=== PATIENT | male | born 1960 | race Caucasian/White ===

== ENCOUNTER 2017-06-01 09:07 | Day surgery (SDC) | payer BC, MEDICARE ==
[~2017-06-01 09:07] MED LIST: Buffered Lidocaine 0.9% SYRIN* 5 ML/SYR SYRINGE INTRADERM ONE
[2017-06-01] MEDS ORDERED: ceFAZolin 2 GM PREMIX (*) 2 GM/50 ML BAG IVPB ONE (09:35)
[2017-06-01] MEDS ORDERED: fentaNYL* 50 MCG/ML 2 ML VIAL (100 MCG VIAL) ONE ×2 (10:22→12:33)
[2017-06-01] MEDS ORDERED: Midazolam* 1 MG/ML 2 ML VIAL (2 MG) ONE (10:22)
[2017-06-01] MEDS ORDERED: Famotidine IV* 10 MG/ML 2 ML (20 mg) ONE (10:55)
[2017-06-01] MEDS ORDERED: Bupivacaine 0.25% SDV* 30 ML ONE (10:58)
[2017-06-01] MEDS ORDERED: Ketorolac INJ* 30 MG/ML 1 ML VIAL ONE (11:35)
[2017-06-01] MEDS ORDERED: Propofol* 10 MG/ML 20 ML BTL IV PUSH ONE (11:35)
[2017-06-01] MEDS ORDERED: Dexamethasone IV* 4 MG/ML 1 ML (4 MG) ONE (11:35)
[2017-06-01] MEDS ORDERED: Lidocaine 2% PF * 5 ML VIAL ONE (11:35)
[2017-06-01] MEDS ORDERED: DiMENhydriNATE IV* 50 MG/ML VIAL IV PUSH PRN (12:02)
[2017-06-01] MEDS ORDERED: Ondansetron INJ* 2 MG/ML VIAL IV PRN (12:02)
[2017-06-01] MEDS ORDERED: fentaNYL* 50 MCG/ML 2 ML VIAL (100 MCG VIAL) IV PRN (12:02)
[2017-06-01] MEDS ORDERED: oxyCODONE TAB* 5 MG TAB PO PRN (12:02)
[2017-06-01 13:43] VITALS: BP 122/68
--- NOTE | 2017-06-02 06:33 | OP ---
DATE OF OPERATION: 06/01/17 - [facility] DATE OF : 64 SURGEON: Dexter Lawler MD BOWSTRING MAKER: HALEY López. An city carrier assistant was needed for the entirety of the procedure to aid in positioning of the arm and retraction. ANESTHESIOLOGIST: Dr. Singh. ANESTHESIA: General. PRE-OP DIAGNOSES: 1. 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 2. 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 POST-OP DIAGNOSES: 1. 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 2. 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 OPERATIVE PROCEDURE: 1. Excision of very large right posterior elbow gouty tophus. 2. Curettage of right proximal elbow bone lesion. 3. Excision of right index finger radial sided metacarpophalangeal joint gouty tophus. INDICATIONS: Flaco is 56. 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 The worst is over the posterior elbow where it is very large and is probably almost 15 cm in diameter and protrudes a solid 4 to 5 cm from the back of the elbow. He had wanted that excised. 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 He is currently on probenecid. The tophi have not been shrinking or getting smaller. They have also not been getting larger. They have been very stable in size for quite sometime. I had talked to him about the risks and benefits including the risk of recurrence, the risk of deformity, the risk of swelling and stiffness after surgery. Wanted to proceed. ESTIMATED BLOOD LOSS: 5 mL. COMPLICATIONS: None. FINDINGS: A gouty tophus on the posterior elbow was eroding down into the proximal olecranon necessitating curettage of this lesion. DESCRIPTION OF PROCEDURE: Flaco was seen in the preoperative holding area. The correct site, side, and procedure were identified. He came back to the operating room. Anesthesia was induced. He was positioned supine with the use of hand table. The arm was prepped and draped in the usual fashion. A time- out was performed. I exsanguinated the arm with the Esmarch and the tourniquet was inflated to 250 mmHg. I then brought the arm across the body. The posterior elbow was positioned towards me. I made a longitudinal incision down the midline over the tophus. The dermis was and I went through the reactive zone and was able to reach the radial and ulnar aspect of the tophus and then I excised it from off the triceps fascia proximally and then more distally and released it off the periosteum over the proximal olecranon. I then passed this off as a specimen. There was a tract tunneling down to the proximal olecranon of crystals. I curettaged that and then used a rongeur to unroof it. Ultimately, the lesion ended up being a little over a cm long and about 6 mm wide and about 6 to 10 mm deep. I curettaged it out completely until there were no more crystals left. I went ahead and irrigated out this wound copiously. I placed both bone wax around the lesion there. I then excised about 5 mm of skin on either side of the incision to give it some of the redundancy, and the skin was closed with 4-0 nylon suture. I then turned my attention to the hand where I made a lazy S-incision over the dorsoradial aspect of the index finger metacarpophalangeal joint. Dissection was carried down longitudinally and the traversing veins and the sensory nerves were raised with the flaps. I went ahead and freed up the tophus dorsally and volarly and took this right off the extensor tendon. It was eroding into and degrading the radial sagittal band. I the plain as best possible. It was definitely an intralesional excision, and ultimately the tophus was extending and eroding into the first dorsal interosseous muscle and tendon. I debulked much of that as possible. The tophus was also deep to the sagittal band, and I used the rongeur and debulked that to the extent possible taking care to preserve the radial sagittal band and the radial collateral ligament to the extent possible. Once I had removed almost all the tophus and debulked it to the extent possible, I went ahead and irrigated out the wound. I flexed and extended the MCP joint to make sure the extensor tendons were not subluxating. There were staying nicely positioned over the dorsum of the joint. I therefore did not need to tighten up the radial sagittal band. I went ahead and irrigated out the wound. Again the skin was closed with 4-0 nylon suture. I infiltrated all the operative wounds with 0.25% plain Marcaine. I then dressed the wounds with Xeroform, 4x4, sterile Webril, and ABD at the elbow and a posterior slab splint that was brought down around the volar aspect of the wrist and down to the PIP joints holding the MP joints in extension. The tourniquet was then deflated and the hand pinked up immediately. He was then woken up and taken to the recovery room in stable condition. [id number]/[facility] #: [id number] [facility]USLuciana
== END 2017-06-01 13:45 | disposition home or self-care (01) ==
LOC: OREAST 09:07
PROVIDERS: ATTEND Orthopaedic Surgery Hand Surgery
DX: M1A.0211 Idiopathic chronic gout, right elbow, with tophus (tophi) (principal); M1A.0411 Idiopathic chronic gout, right hand, with tophus (tophi); Z79.899 Other long term (current) drug therapy; E03.9 Hypothyroidism, unspecified; K70.30 Alcoholic cirrhosis of liver without ascites; D64.9 Anemia, unspecified; E87.1 Hypo-osmolality and hyponatremia; F32.9 Major depressive disorder, single episode, unspecified
CPT/HCPCS: 88304; J0690; J1100; J1885; J2250; J2704; J3010

== ENCOUNTER → 2017-08-29 15:13 | Emergency (ER) | payer BC, MEDICARE ==
[~2017-08-29 15:13] MED LIST changes: -Buffered Lidocaine 0.9% SYRIN* 5 ML/SYR SYRINGE INTRADERM ONE; +D5W IVPB SCH; +Etomidate* 2 MG/ML 20 ML VIAL (40 MG) ONE; +KETAMINE HCL* 50 MG/ML 10 ML VIAL ONE; +Midazolam DRIP 100 MG (1 mg/ml)* - ED ONCE IV ONE; +NS 0.9% 1000 ML* 1,000 ML IV ONE; +OCTREOTIDE ACETATE IVPB SCH; +Octreotide Acetate* 100 MCG/ML 1 ML VIAL IV ONE; +Octreotide Acetate* 50 MCG/ML ML IV SLOW PU ONE; +Octreotide Acetate* 500 MCG in NS 0.9% 100 ML* 100 ML IVPB SCH; +Ondansetron INJ* 2 MG/ML VIAL IV ONE; +Ondansetron INJ* 2 MG/ML VIAL ONE; +Pantoprazole IV* 40 MG IV ONE; +Pantoprazole IV* 80 MG in NS 0.9% 100 ML* 100 ML IVPB SCH; +Rocuronium* 10 MG/ML VIAL IV ONE; +Rocuronium* 10 MG/ML VIAL ONE; +Succinylcholine* 20 MG/ML 10 ML VIAL ONE
--- OUTSIDE RECORDS SUMMARY | 2017-08-29 15:46 | XMS REPORT ---
:1960 External Reference #:[id number] Author Organization [employer] Address [address] [address] Phone [phone] Care Team Providers Name Role Phone Toni Barr MD Primary Care Physician Unavailable Payers Type Date Identification Numbers Payment Provider Subscriber Commercial Effective: Policy Number: BS Facets Izzy Reginaa 2016 [id number] Emilia PayID: [id number] [address] [address] [place] [address] Medigap Part B Effective: 2016 Policy Number: Medicare Edil Butler [id number] PayID: [id number] [address] [place] [address] Commercial Effective: 2015 Policy Number: 50% [facility] [facility] Edil Butler Expires: 2017 PayID: [id number] [place] [id number] Advance Directives Type Date Description Status Comment Other Directive 02/07/2016 Health Care Proxy Current and Verified Problems Date Description Provider Status Onset: 08/05/2012 Alverto Mishra M.D. Active Onset: 08/05/2012 Immunological Findings Nonspec Tommie Mishra M.D. Active Other & Unspec Onset: 08/05/2012 Farhana Mishra M.D. Active Onset: 01/31/2016 Alcoholic cirrhosis Ananda Molina M.D. Active Onset: 01/31/2016 Gastroesophageal reflux disease Ananda Molina M.D. Active Onset: 01/31/2016 Major depressive disorder, single Ananda Molina M.D. Active episode, unspecified Onset: 02/08/2016 Hypothyroidism Ananda Molina M.D. Active Onset: 03/07/2016 Anemia Ananda Molina M.D. Active Onset: 04/22/2016 Sequela of chronic liver disease Ananda Molina M.D. Active Onset: 01/21/2017 Internal hemorrhoids Julissa Beauchamp M.D.,FACGino Onset: 05/18/2017 Primary erectile dysfunction Julissa Beauchamp M.D.,FACGino Onset: 07/22/2013 Liver function tests abnormal Tommie Mishra M.D. Inactive Inactive: 06/12/2016 Onset: 02/01/2016 Elevated levels of transaminase & Tommie Mishra M.D. Inactive lactic acid dehydrogenase Inactive: 06/12/2016 Onset: 01/31/2016 Hypo-osmolality and or hyponatremia Ananda Molina M.D. Inactive Inactive: 05/18/2017 Onset: 04/26/2013 Medications Fdc (Current) Use Tommie Mishra M.D. Inactive Encounter Inactive: 05/18/2017 Family History Date Family Member(s) Problem(s) Comments General Diabetes Type II Father Diabetes Type II Mother Diabetes, Insulin Dependent First Sister Breast Cancer Social History Type Date Description Comments Marital Status Lives With Work Status Not Currently Working ETOH Use 06/12/2016 Denies alcohol use quit January 17 2016 ETOH Use Has consumed alcohol in the past Smoking 05/18/2017 Patient has never smoked Recreational Drug Use Denies Drug Use General Hx Text 3 kids, 2 stepkids Allergies, Adverse Reactions, Alerts Date Description Reaction Status Severity Comments 08/05/2012 NKDA active Medications Medication Date Status Form Strength Qnty SIG Indications Ordering Provider Sertraline HCL 07/24 Active Tablets 25mg 90tab take one F32.9 s tablet by Silvio Barr, mouth every M.D.,FACP morning Tramadol HCL 06/01 Active Tablets 50mg 30tab 1-2 tablet s by mouth Lawler, every 6 MD hours as needed pain Eplerenone 04/17 Active Tablets 25mg 45tab 1 by mouth s every Silvio Barr, morning M.D.,FACP Viagra 04/17 Active Tablets 50mg 10tab 1 by mouth s as needed Silvio Barr M.D.,FANTA Omeprazole 01/[address] 20mg 180ta 1 by mouth bs twice a day Silvio Barr M.D.,FACP Fluticasone 11/20 Active Suspension 50mcg/Act 16uni 1 spray each Propionate ts nostril in Silvio Barr, in the M.D.,FACP morning as needed Triamcinolone 11/20 Active Cream 0.5% 30gm every day as Acetonide needed Silvio Barr M.D.,FACP Lunesta 06/12 Active Tablets 2mg 30tab take 1 G47.00 s tablet by Silvio Barr mouth at M.D.,FACP bedtime as needed -- maximum daily dose of 1 per day Probenecid 05/08 Active Tablets 500mg 180ta Take one bs capsule/tabl Nely et by mouth M.D. twice daily Magnesium-Oxide 05/06 Active Tablets 400(241.3 90tab 1 by mouth mg) mg s every day Ordering Provider Synthroid 02/07 Active Tablets 25mcg 30tab take one E03.9 s tablet by Silvio Barr, mouth one M.D.,FACP time daily empty stomach Folic Acid 01/24 Active Tablets 1mg 30tab 1 by mouth D64.9 s every day Silvio Barr M.D.,FACP Lactulose 01/24 Active Solution 10GM/15ML 1419m 30 K70.40 l milliliters Silvio Barr, in the in M.D.,FACP the morning and 15ml in the evening Multivitamin 01/24 Active Tablets 30tab 1 by mouth s every day Silvio Barr M.D.,FACP Thiamine HCL 01/24 Active Tablets 100mg 30tab 1 by mouth s every day Silvio Barr M.D.,FACP Klor-Con M20 01/24 Active Tablets ER 20Meq 30tab 1 by mouth Toni s every day Silvio Barr M.D.,[facility] Xifaxan Active Tablets 550mg 60tab 1 po bid K70.40 Unknown /0000 s Tramadol 06/01 Hx Tablets 37.5-325m 30tab 1-2 tab by Dexter Ayala/ g s mouth every Lawler, cetaminophen - 4-6 hours as 06/01 needed Eplerenone 11/20 Hx Tablets 50mg 30tab 1 po qam Toni s Mor Al M.D.,[facility] 04/17 Polyethylene 08/06 Hx Powder 1450 1gm 17 grams mix Other with 8 oz of Ordering - water and Provider 09/17 drink daily Spironolactone 08/06 Hx Tablets 50mg 30tab 1 by mouth s every day Mor Al M.D.,[facility] 11/20 Ferrous 05/16 Hx Tablets 324(38Fe) 30tab take 1 D64.9 Other Gluconate /2015 mg s tablet by Ordering - mouth daily Provider 08/14 with vitamin /2015 c Ferrous 05/06 Hx Tablets 324(38Fe) 60tab take 1 D64.9 Bijan Gluconate /2015 mg s tablet by Belarusian, - mouth twice [employer] 05/08 a day with vitamin c Zolpidem 03/10 Hx Tablets 10mg 30tab 1/2 to 1 tab [place] Tartrate s by mouth Pachikara - every night , M.D. 04/22 at bedtime as needed Sertraline HCL 03/07 Hx Tablets 50mg 30tab 1/2 by mouth F32.9 Toni s every day Silvio Barr, - for 2 wks M.D.,[facility] 07/24 then Zolpidem 03/07 Hx Tablets 5mg 30tab 1 tab by G47.00 Toni Tartrate s mouth every Silvio Barr, - day at at M.D.,[facility] 06/12 bedtime needed Lasix 02/25 Hx Tablets 20mg 30tab 1 by mouth s every day Ordering - Provider 04/22 Spironolactone 02/07 Hx Tablets 25mg 60tab 1 tab by K70.31 s mouth twice Pachikara - daily , M.D. 08/14 Sertraline HCL 01/30 Hx Tablets 25mg 30tab 2/day F32.9 s Jesse - , M.DMaria De Jesus 03/07 Melatonin ER 01/24 Hx Tablets ER 3mg 30tab 1 tab by Other s mouth every Ordering - night prn Provider 05/06 insomnia (not taking) Prilosec 01/[address] 20mg 60cap 1 by mouth Toni s twice a day Mor Al M.D.,[facility] 01/21 Colcrys 03/08 Hx Tablets 0.6mg 60tab Take 1 s Tablet By Endo, - Mouth Two M.D. 01/30 Times Daily /2015 Colchicine 01/04 Hx Tablets 0.6mg 60tab 1 by mouth s twice a day Endo, - M.D. 04/05 Allopurinol 01/03 Hx Tablets 300mg 30tab Take One 274.82 s Tablet By Endo, - Mouth Once M.D. 01/30 /2015 Prednisone 04/26 Hx Tablets 10mg 60tab 1 by mouth 274.82 s twice a day Endo, - x 1 week as M.D. 01/30 Allopurinol 02/03 Hx Tablets 100mg 30tab 1 every day s Endo, - M.D. 01/30 Allopurinol 02/01 Hx Tablets 300mg 30tab 1 po qd 274.9 Tommie s Endo, - M.D. 04/05 Diclofenac 10/[address] 75mg 60tab 1 tab by 274.[address] s mouth once a Endo, - day prn M.D. 10/25 Colchicine 10/29 Hx Tablets 0.6mg 60tab 1 po bid 274.82 Tommie s Endo, - M.D. 07/22 Allopurinol 08/05 Hx Tablets 100mg 90tab 1 po bid x 4 274.9 s weeks then 3 Endo, - /d M.D. 02/01 Allopurinol /00 Hx Tablets 100mg 90tab 1 po qd Unknown / s - 08/05 Colcrys 00 Hx Tablets 0.6mg 30tab take 2 tabs Unknown /0000 s first now, - and then 1 10/25 tab one hour /2013 after the 2, and then one tab daily until symptoms resolve Prednisone 00 Hx Tablets 20mg 10tab 1 po qd Unknown / s - 04/26 Lasix Hx Tablets 20mg once daily Unknown /0000 - 04/22 Immunizations CPT Code Status Date Vaccine Reaction Lot # [id number] Given 04/17/2017 Influenza Virus Vaccine, 572kt Quadrivalent, Split, Preservative Free [id number] Given 01/21/2017 Measles Mumps And Rubella pt tolerated well, no [id number] MMR reaction [id number] Given 06/12/2016 Influenza Virus Vaccine, Quadrivalent, Split Virus, [place] Use [address]57 Given 06/12/2016 Pneumococcal Conjugate no reaction [id number] Vaccine 13 Valent For Intramuscular Use Vital Signs Date Vital Result Comment 08/18/2017 Height 70.5 inches 5'10.50" Weight 180.00 lb Heart Rate 97 /min BP Systolic 122 mmHg BP Diastolic 69 mmHg Body Temperature 97.9 F BMI (Body Mass Index) 25.5 kg/m2 07/24/2017 Weight 176.25 lb Heart Rate 84 /min BP Systolic Sitting 130 mmHg BP Diastolic Sitting 72 mmHg Body Temperature 97.8 F O2 % BldC Oximetry 97 % 07/15/2017 Height 70 inches 5'10" Weight 175.00 lb Heart Rate 76 /min Respiratory Rate 14 /min Body Temperature 97.3 F Pain Level 0 BMI (Body Mass Index) 25.1 kg/m2 06/17/2017 Height 70 inches 5'10" Weight 181.62 lb Heart Rate 81 /min BP Systolic Sitting 130 mmHg BP Diastolic Sitting 71 mmHg Respiratory Rate 14 /min Pain Level 2 BMI (Body Mass Index) 26.1 kg/m2 06/16/2017 Height 70 inches 5'10" Weight 175.00 lb Heart Rate 96 /min Respiratory Rate 16 /min Body Temperature 97.5 F Pain Level 1 BMI (Body Mass Index) 25.1 kg/m2 05/18/2017 Weight 176.00 lb Heart Rate 79 /min BP Systolic Sitting 130 mmHg BP Diastolic Sitting 58 mmHg Body Temperature 98.0 F O2 % BldC Oximetry 98 % 05/01/2017 Height 70 inches 5'10" Weight 175.00 lb Heart Rate 90 /min BP Systolic Sitting 121 mmHg BP Diastolic Sitting 71 mmHg Respiratory Rate 14 /min Body Temperature 97.1 F Pain Level 0 BMI (Body Mass Index) 25.1 kg/m2 04/17/2017 Weight 178.00 lb Heart Rate 89 /min BP Systolic Sitting 118 mmHg BP Diastolic Sitting 60 mmHg Body Temperature 97.7 F O2 % BldC Oximetry 98 % 01/21/2017 Weight 173.25 lb Heart Rate 78 /min BP Systolic Sitting 118 mmHg BP Diastolic Sitting 58 mmHg Body Temperature 97.7 F O2 % BldC Oximetry 98 % 11/20/2016 Height 68.5 inches 5'8.50" Weight 163.12 lb Heart Rate 93 /min BP Systolic Sitting 140 mmHg BP Diastolic Sitting 68 mmHg Body Temperature 98.0 F O2 % BldC Oximetry 98 % BMI (Body Mass Index) 24.4 kg/m2 09/17/2016 Height 68.5 inches 5'8.50" Weight 157.00 lb Heart Rate 80 /min BP Systolic Sitting 102 mmHg BP Diastolic Sitting 58 mmHg Body Temperature 97.8 F Pain Level 3 BMI (Body Mass Index) 23.5 kg/m2 08/14/2016 Weight 155.25 lb Heart Rate 78 /min BP Systolic Sitting 104 mmHg BP Diastolic Sitting 60 mmHg Body Temperature 97.9 F O2 % BldC Oximetry 99 % 06/17/2016 Height 68.5 inches 5'8.50" Weight 146.00 lb Heart Rate 80 /min BP Systolic Sitting 110 mmHg BP Diastolic Sitting 64 mmHg Respiratory Rate 14 /min Body Temperature 96.7 F Pain Level 3 BMI (Body Mass Index) 21.9 kg/m2 06/12/2016 Weight 148.50 lb Heart Rate 92 /min BP Systolic Sitting 115 mmHg BP Diastolic Sitting 64 mmHg Body Temperature 97.7 F O2 % BldC Oximetry 98 % 05/08/2016 Weight 146.12 lb Heart Rate 83 /min BP Systolic Sitting 100 mmHg BP Diastolic Sitting 58 mmHg Body Temperature 97.7 F O2 % BldC Oximetry 98 % 05/06/2016 Height 68.5 inches 5'8.50" Weight 145.00 lb Heart Rate 86 /min BP Systolic Sitting 112 mmHg BP Diastolic Sitting 64 mmHg Body Temperature 97.5 F Pain Level 3 BMI (Body Mass Index) 21.7 kg/m2 04/22/2016 Weight 140.50 lb Heart Rate 82 /min BP Systolic Sitting 110 mmHg BP Diastolic Sitting 58 mmHg Body Temperature 97.4 F O2 % BldC Oximetry 98 % 03/07/2016 Weight 137.00 lb Heart Rate 84 /min BP Systolic Sitting 110 mmHg BP Diastolic Sitting 70 mmHg BP Systolic Recheck 100 mmHg BP Diastolic Recheck 58 mmHg Respiratory Rate 14 /min Body Temperature 98.6 F Pain Level 4 02/15/2016 Weight 156.00 lb Heart Rate 108 /min BP Systolic Sitting 108 mmHg BP Diastolic Sitting 71 mmHg Body Temperature 96.9 F 02/08/2016 Weight 166.00 lb Heart Rate 84 /min BP Systolic Sitting 128 mmHg BP Diastolic Sitting 72 mmHg Respiratory Rate 14 /min O2 % BldC Oximetry 88 % 96 with deep breathing 02/01/2016 Height 68.5 inches 5'8.50" Weight 169.12 lb Heart Rate 100 /min BP Systolic Sitting 104 mmHg BP Diastolic Sitting 60 mmHg Body Temperature 98.5 F Pain Level 6 BMI (Body Mass Index) 25.3 kg/m2 01/31/2016 Height 68.5 inches 5'8.50" Weight 170.00 lb Heart Rate 106 /min BP Systolic Sitting 106 mmHg BP Diastolic Sitting 64 mmHg Body Temperature 98.4 F O2 % BldC Oximetry 98 % BMI (Body Mass Index) 25.5 kg/m2 04/05/2014 Height 70 inches 5'10" Weight 158.50 lb Heart Rate 86 /min BP Systolic Sitting 110 mmHg BP Diastolic Sitting 84 mmHg Pain Level 7 BMI (Body Mass Index) 22.7 kg/m2 01/03/2014 Height 70 inches 5'10" Weight 158.00 lb Heart Rate 80 /min BP Systolic 130 mmHg BP Diastolic 96 mmHg BMI (Body Mass Index) 22.7 kg/m2 10/25/2013 Height 70 inches 5'10" Weight 158.00 lb Heart Rate 94 /min BP Systolic Sitting 122 mmHg BP Diastolic Sitting 90 mmHg BMI (Body Mass Index) 22.7 kg/m2 07/22/2013 Weight 152.00 lb Heart Rate 70 /min BP Systolic 118 mmHg BP Diastolic 76 mmHg 04/26/2013 Height 69 inches 5'9" Weight 159.00 lb Heart Rate 98 /min BP Systolic Sitting 126 mmHg BP Diastolic Sitting 86 mmHg BMI (Body Mass Index) 23.5 kg/m2 02/01/2013 Height 69 inches 5'9" Weight 158.00 lb Heart Rate 88 /min BP Systolic Sitting 134 mmHg BP Diastolic Sitting 80 mmHg BMI (Body Mass Index) 23.3 kg/m2 10/29/2012 Height 69 inches 5'9" Weight 158.00 lb Heart Rate 84 /min BP Systolic Sitting 127 mmHg BP Diastolic Sitting 81 mmHg BMI (Body Mass Index) 23.3 kg/m2 08/05/2012 Height 69 inches 5'9" Weight 158.00 lb Heart Rate 82 /min BP Systolic Sitting 126 mmHg BP Diastolic Sitting 72 mmHg BMI (Body Mass Index) 23.3 kg/m2 Results Test Date Test Result H/L Range Note Laboratory test 06/16/2017 Uric Acid 5.1 mg/dL 4.4-7.6 1, 2 finding Laboratory test 06/01/2017 Surgical Pathology SEE RESULT BELOW 3, 4 finding Laboratory test 05/01/2017 TSH (Thyroid Stim 2.44 mcIU/mL 0.34-5.60 finding Horm) Free T4 (Free Thyroxine) 0.45 ng/dL Low 0.61-1.12 FSH (Follicle Stim Hormone) 3.2 mIU/mL 1-20 LH (Lutenizing Hormone) 5.7 mcIU/mL 2-12 Testosterone Free & 05/01/2017 Free Testosterone ng/dl 12.7 ng/dL 4.06-15.6 5 Total Testosterone 904 ng/dL 240-950 6 CBC No Diff 03/30/2017 White Blood Count 6.4 10^3/uL 3.5-10.8 Red Blood Count 3.89 10^6/uL Low 4.0-5.4 Hemoglobin 11.3 g/dL Low 14.0-18.0 Hematocrit 34 % Low 42-52 Mean Corpuscular Volume 87 fL 80-94 Mean Corpuscular Hemoglobin 29 pg 27-31 Mean Corpuscular HGB Conc 34 g/dL 31-36 Red Cell Distribution Width 15 % 10.5-15 Platelet Count 70 10^3/uL Low 150-450 7 Mean Platelet Volume 10 um3 7.4-10.4 Comp Metabolic Panel 03/30/2017 Sodium 136 mmol/L 133-145 Potassium 4.2 mmol/L 3.5-5.0 Chloride 104 mmol/L 101-111 Co2 Carbon Dioxide 26 mmol/L 22-32 Anion Gap 6 mmol/L 2-11 Glucose 123 mg/dL High 70-100 Blood Urea Nitrogen 11 mg/dL 6-24 Creatinine 1.09 mg/dL 0.67-1.17 BUN/Creatinine Ratio 10.1 8-20 Calcium 8.7 mg/dL 8.6-10.3 Total Protein 7.2 g/dL 6.4-8.9 Albumin 3.4 g/dL 3.2-5.2 Globulin 3.8 g/dL 2-4 Albumin/Globulin Ratio 0.9 Low 1-3 Total Bilirubin 1.40 mg/dL High 0.2-1.0 Alkaline Phosphatase 65 U/L 34-104 Alt 22 U/L 7-52 Ast 35 U/L 13-39 Egfr Non- 70.5 >60 Egfr 90.7 >60 8 CBC Auto Diff 11/27/2016 White Blood Count 5.5 10^3/uL 3.5-10.8 Red Blood Count 3.34 10^6/uL Low 4.0-5.4 Hemoglobin 10.3 g/dL Low 14.0-18.0 Hematocrit 31 % Low 42-52 Mean Corpuscular Volume 92 fL 80-94 Mean Corpuscular Hemoglobin 31 pg 27-31 Mean Corpuscular HGB Conc 34 g/dL 31-36 Red Cell Distribution Width 14 % 10.5-15 Platelet Count 68 10^3/uL Low 150-450 9 Mean Platelet Volume 12 um3 High 7.4-10.4 Abs Neutrophils 3.5 10^3/uL 1.5-7.7 Abs Lymphocytes 1.1 10^3/uL 1.0-4.8 Abs Monocytes 0.6 10^3/uL 0-0.8 Abs Eosinophils 0.3 10^3/uL 0-0.6 Abs Basophils 0 10^3/uL 0-0.2 Abs Nucleated RBC 0 10^3/uL Granulocyte % 63.6 % 38-83 Lymphocyte % 19.2 % Low 25-47 Monocyte % 10.4 % High 1-9 Eosinophil % 5.9 % 0-6 Basophil % 0.9 % 0-2 Nucleated Red Blood Cells % 0 Basic Metabolic Panel 11/27/2016 Sodium 133 mmol/L 133-145 Potassium 3.8 mmol/L 3.5-5.0 Chloride 103 mmol/L 101-111 Co2 Carbon Dioxide 24 mmol/L 22-32 Anion Gap 6 mmol/L 2-11 Glucose 190 mg/dL High 70-100 Blood Urea Nitrogen 9 mg/dL 6-24 Creatinine 0.92 mg/dL 0.67-1.17 BUN/Creatinine Ratio 9.8 8-20 Calcium 8.6 mg/dL 8.6-10.3 Egfr Non- 85.7 >60 Egfr 110.3 >60 10 Laboratory test 09/17/2016 Uric Acid 6.4 mg/dL 4.4-7.6 finding Laboratory test 08/22/2016 Surgical Pathology SEE RESULT BELOW 11 finding Lipid Profile 08/18/2016 Triglycerides 222 mg/dL 12, 13 (Trig/Chol/HDL) Cholesterol 195 mg/dL 12, 14 HDL Cholesterol 36.6 mg/dL 12, 15 LDL Cholesterol 114 mg/dL 12, 16 Laboratory test finding 07/09/2016 Uric Acid 6.1 mg/dL 4.4-7.6 17, 18 CBC Auto Diff 07/09/2016 White Blood Count 5.5 10^3/uL 3.5-10.8 Red Blood Count 3.13 10^6/uL Low 4.0-5.4 Hemoglobin 9.7 g/dL Low 14.0-18.0 Hematocrit 29 % Low 42-52 Mean Corpuscular Volume 91 fL 80-94 Mean Corpuscular Hemoglobin 31 pg 27-31 Mean Corpuscular HGB Conc 34 g/dL 31-36 Red Cell Distribution Width 17 % High 10.5-15 Platelet Count 77 10^3/uL Low 150-450 Mean Platelet Volume 9 um3 7.4-10.4 Abs Neutrophils 3.2 10^3/uL 1.5-7.7 Abs Lymphocytes 1.2 10^3/uL 1.0-4.8 Abs Monocytes 0.7 10^3/uL 0-0.8 Abs Eosinophils 0.4 10^3/uL 0-0.6 Abs Basophils 0.1 10^3/uL 0-0.2 Abs Nucleated RBC 0 10^3/uL Granulocyte % 58.0 % 38-83 Lymphocyte % 21.4 % Low 25-47 Monocyte % 12.7 % High 1-9 Eosinophil % 6.8 % High 0-6 Basophil % 1.1 % 0-2 Nucleated Red Blood Cells % 0 Retic Count 07/09/2016 Retic Count 1.4 % 0.5-1.5 Corrected Retic Count 0.9 % 0.5-1.5 Maturation Factor Retic 2.0 Retic Index 0.50 Mean Retic Volume 122.3 Immature Retic Fraction 0.39 RBC Retic Count 3.13 10^6/uL Low 4.6-6.2 Hematocrit for Retic CNT 29 % Low 42-52 Laboratory test finding 07/09/2016 Erythropoietin 10.8 mIU/mL 2.6 - 18.5 19 Haptoglobin <14 mg/dL 30 - 200 20 LDH 225 U/L 140-271 Direct Jessica WEAKLY POSITIVE Vitamin B12 1239 pg/mL High 180-914 21 Laboratory test finding 07/09/2016 TSH (Thyroid Stim Horm) 3.78 mcIU/mL 0.34-5.60 Free T4 (Free Thyroxine) 0.64 ng/dL 0.61-1.12 CBC Auto Diff 05/13/2016 White Blood Count 5.5 10^3/uL 3.5-10.8 Red Blood Count 2.89 10^6/uL Low 4.0-5.4 Hemoglobin 9.1 g/dL Low 14.0-18.0 Hematocrit 26 % Low 42-52 Mean Corpuscular Volume 91 fL 80-94 Mean Corpuscular Hemoglobin 32 pg High 27-31 Mean Corpuscular HGB Conc 35 g/dL 31-36 Red Cell Distribution Width 17 % High 10.5-15 Platelet Count 98 10^3/uL Low 150-450 22 Mean Platelet Volume 10 um3 7.4-10.4 Abs Neutrophils 3.6 10^3/uL 1.5-7.7 Abs Lymphocytes 0.9 10^3/uL Low 1.0-4.8 Abs Monocytes 0.7 10^3/uL 0-0.8 Abs Eosinophils 0.2 10^3/uL 0-0.6 Abs Basophils 0 10^3/uL 0-0.2 Abs Nucleated RBC 0.01 10^3/uL Granulocyte % 65.4 % 38-83 Lymphocyte % 16.6 % Low 25-47 Monocyte % 12.7 % High 1-9 Eosinophil % 4.4 % 0-6 Basophil % 0.9 % 0-2 Nucleated Red Blood Cells % 0.2 Laboratory test finding 05/13/2016 Ammonia 122 ?mol/L High 16-53 Laboratory test finding 05/07/2016 Ammonia 103 ?mol/L High 16-53 Hepatitis C Antibody Nonreactive Nonreactive CBC Auto Diff 05/07/2016 White Blood Count 5.5 10^3/uL 3.5-10.8 Red Blood Count 2.90 10^6/uL Low 4.0-5.4 Hemoglobin 8.8 g/dL Low 14.0-18.0 Hematocrit 26 % Low 42-52 Mean Corpuscular Volume 90 fL 80-94 Mean Corpuscular Hemoglobin 31 pg 27-31 Mean Corpuscular HGB Conc 34 g/dL 31-36 Red Cell Distribution Width 16 % High 10.5-15 Platelet Count 95 10^3/uL Low 150-450 23 Mean Platelet Volume 9 um3 7.4-10.4 Abs Neutrophils 3.4 10^3/uL 1.5-7.7 Abs Lymphocytes 1.1 10^3/uL 1.0-4.8 Abs Monocytes 0.7 10^3/uL 0-0.8 Abs Eosinophils 0.3 10^3/uL 0-0.6 Abs Basophils 0 10^3/uL 0-0.2 Abs Nucleated RBC 0 10^3/uL Granulocyte % 61.4 % 38-83 Lymphocyte % 20.6 % Low 25-47 Monocyte % 12.6 % High 1-9 Eosinophil % 4.8 % 0-6 Basophil % 0.6 % 0-2 Nucleated Red Blood Cells % 0 Iron & Iron Binding Capacity 05/07/2016 Iron 104 g/dL 50-212 Unsaturated Iron Binding 75 g/dL Total Iron Binding Capacity 179 g/dL Low 250-450 % Iron Saturation 58 % High 15-55 Laboratory test 05/07/2016 Ferritin 473.0 ng/mL High 24-336 finding Stool For Blood 04/29/2016 Stool Occult Blood SEE RESULT BELOW 24 CBC Auto Diff 04/29/2016 White Blood Count 5.1 10^3/uL 3.5-10.8 Red Blood Count 2.72 10^6/uL Low 4.0-5.4 Hemoglobin 8.4 g/dL Low 14.0-18.0 Hematocrit 25 % Low 42-52 Mean Corpuscular Volume 90 fL 80-94 Mean Corpuscular Hemoglobin 31 pg 27-31 Mean Corpuscular HGB Conc 34 g/dL 31-36 Red Cell Distribution Width 16 % High 10.5-15 Platelet Count 82 10^3/uL Low 150-450 25 Mean Platelet Volume 10 um3 7.4-10.4 Abs Neutrophils 3.3 10^3/uL 1.5-7.7 Abs Lymphocytes 1.0 10^3/uL 1.0-4.8 Abs Monocytes 0.6 10^3/uL 0-0.8 Abs Eosinophils 0.2 10^3/uL 0-0.6 Abs Basophils 0 10^3/uL 0-0.2 Abs Nucleated RBC 0 10^3/uL Granulocyte % 64.6 % 38-83 Lymphocyte % 19.0 % Low 25-47 Monocyte % 11.7 % High 1-9 Eosinophil % 4.4 % 0-6 Basophil % 0.3 % 0-2 Nucleated Red Blood Cells % 0.1 Laboratory test finding 04/29/2016 Lactic Acid 2.5 mmol/L High 0.5-2.0 26 Inr/Protime 04/29/2016 Inr 1.75 High 0.89-1.11 Laboratory test finding 04/29/2016 Partial Thrombo Time 42.8 seconds High 26.0-36.3 PTT Ammonia 100 ?mol/L High 16-53 Comp Metabolic Panel 04/29/2016 Sodium 129 mmol/L Low 133-145 Potassium 4.0 mmol/L 3.5-5.0 Chloride 100 mmol/L Low 101-111 Co2 Carbon Dioxide 24 mmol/L 22-32 Anion Gap 5 mmol/L 2-11 Glucose 147 mg/dL High 70-100 Blood Urea Nitrogen 8 mg/dL 6-24 Creatinine 0.69 mg/dL 0.67-1.17 BUN/Creatinine Ratio 11.6 8-20 Calcium 8.1 mg/dL Low 8.6-10.3 Total Protein 7.3 g/dL 6.4-8.9 Albumin 2.4 g/dL Low 3.2-5.2 Globulin 4.9 g/dL High 2-4 Albumin/Globulin Ratio 0.5 Low 1-3 Total Bilirubin 2.30 mg/dL High 0.2-1.0 Alkaline Phosphatase 58 U/L 34-104 Alt 22 U/L 7-52 Ast 46 U/L High 13-39 Egfr Non- 119.9 >60 Egfr 154.3 >60 27 Laboratory test finding 04/29/2016 Creatine Kinase(CK) 30 U/L 10-223 Troponin-I (TnI) 0.00 ng/mL <0.03 28 Myoglobin 13.1 ng/mL Low 17.4-105.7 CKMB 04/29/2016 CKMB ng/mL 0.7 ng/mL 0.6-6.3 Type & Screen 04/29/2016 Patient Blood Type A Positive Antibody Screen NEGATIVE Laboratory test finding 04/22/2016 Ammonia 102 ?mol/L High 16-53 29, 30 Comp Metabolic Panel 04/22/2016 Sodium 133 mmol/L 133-145 29 Potassium 4.0 mmol/L 3.5-5.0 29 Chloride 104 mmol/L 101-111 29 Co2 Carbon Dioxide 26 mmol/L 22-32 29 Anion Gap 3 mmol/L 2-11 29 Glucose 102 mg/dL High 70-100 29 Blood Urea Nitrogen 10 mg/dL 6-24 29 Creatinine 0.71 mg/dL 0.67-1.17 29 BUN/Creatinine Ratio 14.1 8-20 29 Calcium 8.8 mg/dL 8.6-10.3 29 Total Protein 8.0 g/dL 6.4-8.9 29 Albumin 2.7 g/dL Low 3.2-5.2 29 Globulin 5.3 g/dL High 2-4 29 Albumin/Globulin Ratio 0.5 Low 1-3 29 Total Bilirubin 2.30 mg/dL High 0.2-1.0 29 Alkaline Phosphatase 69 U/L 34-104 29 Alt 26 U/L 7-52 29 Ast 61 U/L High 13-39 29 Egfr Non- 116.1 >60 29 Egfr 149.2 >60 29, 31 CBC Auto Diff 04/22/2016 White Blood Count 5.3 10^3/uL 3.5-10.8 29 Red Blood Count 3.10 10^6/uL Low 4.0-5.4 29 Hemoglobin 9.5 g/dL Low 14.0-18.0 29 Hematocrit 28 % Low 42-52 29 Mean Corpuscular Volume 91 fL 80-94 29 Mean Corpuscular Hemoglobin 31 pg 27-31 29 Mean Corpuscular HGB Conc 34 g/dL 31-36 29 Red Cell Distribution Width 17 % High 10.5-15 29 Platelet Count 99 10^3/uL Low 150-450 29, 32 Mean Platelet Volume 9 um3 7.4-10.4 29 Abs Neutrophils 3.3 10^3/uL 1.5-7.7 29 Abs Lymphocytes 1.0 10^3/uL 1.0-4.8 29 Abs Monocytes 0.7 10^3/uL 0-0.8 29 Abs Eosinophils 0.2 10^3/uL 0-0.6 29 Abs Basophils 0.1 10^3/uL 0-0.2 29 Abs Nucleated RBC 0 10^3/uL 29 Granulocyte % 62.6 % 38-83 29 Lymphocyte % 18.7 % Low 25-47 29 Monocyte % 13.4 % High 1-9 29 Eosinophil % 4.2 % 0-6 29 Basophil % 1.1 % 0-2 29 Nucleated Red Blood Cells % 0 29 Iron & Iron Binding Capacity 04/22/2016 Iron 185 g/dL 50-212 29 Unsaturated Iron Binding -2 g/dL 29 Total Iron Binding Capacity 183 g/dL Low 250-450 29 % Iron Saturation 101 % High 15-55 29 Inr/Protime 04/22/2016 Inr 1.76 High 0.89-1.11 29 Stool For Blood 04/15/2016 Stool Occult SEE RESULT BELOW 33 Blood Laboratory test 04/15/2016 Packed Cells SEE RESULTS BELO 34 finding <SEE NOTE> CBC Auto Diff 04/15/2016 White Blood Count 4.3 10^3/uL 3.5-10.8 Red Blood Count 2.68 10^6/uL Low 4.0-5.4 Hemoglobin 8.3 g/dL Low 14.0-18.0 Hematocrit 25 % Low 42-52 Mean Corpuscular Volume 92 fL 80-94 Mean Corpuscular Hemoglobin 31 pg 27-31 Mean Corpuscular HGB Conc 34 g/dL 31-36 Red Cell Distribution Width 17 % High 10.5-15 Platelet Count 102 10^3/uL Low 150-450 Mean Platelet Volume 9 um3 7.4-10.4 Abs Neutrophils 2.8 10^3/uL 1.5-7.7 Abs Lymphocytes 0.9 10^3/uL Low 1.0-4.8 Abs Monocytes 0.5 10^3/uL 0-0.8 Abs Eosinophils 0.2 10^3/uL 0-0.6 Abs Basophils 0 10^3/uL 0-0.2 Abs Nucleated RBC 0 10^3/uL Granulocyte % 64.1 % 38-83 Lymphocyte % 20.2 % Low 25-47 Monocyte % 10.6 % High 1-9 Eosinophil % 4.6 % 0-6 Basophil % 0.5 % 0-2 Nucleated Red Blood Cells % 0 Laboratory test finding 04/15/2016 Lactic Acid 2.7 mmol/L High 0.5-2.0 35 Ammonia 136 ?mol/L High 16-53 Urinalysis Profile 04/15/2016 Urine Color Rosaura Urine Appearance Cloudy Urine Specific [place] 1.026 1.010-1.030 Urine pH 5.0 5-9 Urine Urobilinogen Negative Negative Urine Ketones Negative Negative Urine Protein 1+(30 mg/dL) Negative Urine Leukocytes Negative Negative Urine Blood Negative Negative * * Negative 36 Urine Nitrite Negative Negative Urine Bilirubin Negative Negative Urine Glucose Negative Negative Urine White Blood Cell 1+(6-10/hpf) Absent Urine Red Blood Cell 1+(3-5/hpf) Absent Urine Bacteria Absent Absent Urine Squamous Epithelial Cell Present Absent Urine Calcium Oxalate Cryst Present Absent Comp Metabolic Panel 04/15/2016 Sodium 134 mmol/L 133-145 Potassium 3.6 mmol/L 3.5-5.0 Chloride 107 mmol/L 101-111 Co2 Carbon Dioxide 21 mmol/L Low 22-32 Anion Gap 6 mmol/L 2-11 Glucose 169 mg/dL High 70-100 Blood Urea Nitrogen 15 mg/dL 6-24 Creatinine 0.70 mg/dL 0.67-1.17 BUN/Creatinine Ratio 21.4 High 8-20 Calcium 8.7 mg/dL 8.6-10.3 Total Protein 8.2 g/dL 6.4-8.9 Albumin 2.6 g/dL Low 3.2-5.2 Globulin 5.6 g/dL High 2-4 Albumin/Globulin Ratio 0.5 Low 1-3 Total Bilirubin 2.40 mg/dL High 0.2-1.0 Alkaline Phosphatase 60 U/L 34-104 Alt 24 U/L 7-52 Ast 45 U/L High 13-39 Egfr Non- 118.0 >60 Egfr 151.7 >60 37 Laboratory test finding 04/15/2016 Troponin-I (TnI) 0.00 ng/mL <0.03 38 Alcohol < 10 mg/dL <10 TSH (Thyroid Stim Horm) 7.27 mcIU/mL High 0.34-5.60 Inr/Protime 04/15/2016 Inr 1.69 High 0.89-1.11 Type & Screen 04/15/2016 Patient Blood Type A Positive Antibody Screen NEGATIVE Laboratory test finding 04/15/2016 Partial Thrombo Time 44.6 seconds High 26.0-36.3 PTT Laboratory test finding 03/03/2016 Uric Acid 7.4 mg/dL 4.4-7.6 Laboratory test finding 03/03/2016 Ammonia 58 ?mol/L High 16-53 Basic Metabolic Panel 02/21/2016 Sodium 128 mmol/L Low 133-145 Potassium 4.1 mmol/L 3.5-5.0 Chloride 101 mmol/L 101-111 Co2 Carbon Dioxide 24 mmol/L 22-32 Anion Gap 3 mmol/L 2-11 Glucose 84 mg/dL 70-100 Blood Urea Nitrogen 7 mg/dL 6-24 Creatinine 0.66 mg/dL Low 0.67-1.17 BUN/Creatinine Ratio 10.6 8-20 Calcium 8.0 mg/dL Low 8.6-10.3 Egfr Non- 126.3 >60 Egfr 162.4 >60 39 Laboratory test finding 02/21/2016 Ammonia 56 ?mol/L High 16-53 Comp Metabolic Panel 02/15/2016 Sodium 127 mmol/L Low 133-145 Potassium 3.9 mmol/L 3.5-5.0 Chloride 102 mmol/L 101-111 Co2 Carbon Dioxide 22 mmol/L 22-32 Anion Gap 3 mmol/L 2-11 Glucose 117 mg/dL High 70-100 Blood Urea Nitrogen 7 mg/dL 6-24 Creatinine 0.67 mg/dL 0.67-1.17 BUN/Creatinine Ratio 10.4 8-20 Calcium 8.0 mg/dL Low 8.6-10.3 Total Protein 9.2 g/dL High 6.4-8.9 Albumin 2.2 g/dL Low 3.2-5.2 Globulin 7.0 g/dL High 2-4 Albumin/Globulin Ratio 0.3 Low 1-3 Total Bilirubin 3.00 mg/dL High 0.2-1.0 Alkaline Phosphatase 71 U/L 34-104 Alt 23 U/L 7-52 Ast 47 U/L High 13-39 Egfr Non- 124.1 >60 Egfr 159.6 >60 40 CBC Auto Diff 02/15/2016 White Blood Count 6.4 10^3/uL 3.5-10.8 Red Blood Count 3.15 10^6/uL Low 4.0-5.4 Hemoglobin 9.8 g/dL Low 14.0-18.0 Hematocrit 29 % Low 42-52 Mean Corpuscular Volume 93 fL 80-94 Mean Corpuscular Hemoglobin 31 pg 27-31 Mean Corpuscular HGB Conc 33 g/dL 31-36 Red Cell Distribution Width 17 % High 10.5-15 Platelet Count 105 10^3/uL Low 150-450 Mean Platelet Volume 9 um3 7.4-10.4 Abs Neutrophils 4.1 10^3/uL 1.5-7.7 Abs Lymphocytes 1.2 10^3/uL 1.0-4.8 Abs Monocytes 0.9 10^3/uL High 0-0.8 Abs Eosinophils 0.1 10^3/uL 0-0.6 Abs Basophils 0 10^3/uL 0-0.2 Abs Nucleated RBC 0 10^3/uL Granulocyte % 64.6 % 38-83 Lymphocyte % 18.4 % Low 25-47 Monocyte % 14.3 % High 1-9 Eosinophil % 2.1 % 0-6 Basophil % 0.6 % 0-2 Nucleated Red Blood Cells % 0.1 Laboratory test finding 02/15/2016 Ammonia 64 ?mol/L High 16-53 CBC Auto Diff 02/08/2016 White Blood Count 8.4 10^3/uL 3.5-10.8 Red Blood Count 3.17 10^6/uL Low 4.0-5.4 Hemoglobin 10.0 g/dL Low 14.0-18.0 Hematocrit 30 % Low 42-52 Mean Corpuscular Volume 94 fL 80-94 Mean Corpuscular Hemoglobin 31 pg 27-31 Mean Corpuscular HGB Conc 33 g/dL 31-36 Red Cell Distribution Width 18 % High 10.5-15 Platelet Count 129 10^3/uL Low 150-450 Mean Platelet Volume 10 um3 7.4-10.4 Abs Neutrophils 5.7 10^3/uL 1.5-7.7 Abs Lymphocytes 1.3 10^3/uL 1.0-4.8 Abs Monocytes 1.2 10^3/uL High 0-0.8 Abs Eosinophils 0.2 10^3/uL 0-0.6 Abs Basophils 0 10^3/uL 0-0.2 Abs Nucleated RBC 0.01 10^3/uL Granulocyte % 67.7 % 38-83 Lymphocyte % 15.7 % Low 25-47 Monocyte % 14.0 % High 1-9 Eosinophil % 2.0 % 0-6 Basophil % 0.6 % 0-2 Nucleated Red Blood Cells % 0.1 Laboratory test finding 02/08/2016 Ammonia 62 ?mol/L High 16-53 Laboratory test finding 02/08/2016 C Reactive Protein 28.64 mg/L High &lt ; 5.00 41 Laboratory test finding 01/31/2016 Ammonia 88 ?mol/L High 53 Laboratory test finding 01/31/2016 Uric Acid 5.9 mg/dL 4.4-7.6 TSH (Thyroid Stim Horm) 24.70 ?IU/mL High 0.34-5.60 CBC Auto Diff 01/31/2016 White Blood Count 11.0 10^3/uL High 3.5-10.8 Red Blood Count 3.32 10^6/uL Low 4.0-5.4 Hemoglobin 10.4 g/dL Low 14.0-18.0 Hematocrit 31 % Low 42-52 Mean Corpuscular Volume 94 fL 80-94 Mean Corpuscular Hemoglobin 31 pg 27-31 Mean Corpuscular HGB Conc 33 g/dL 31-36 Red Cell Distribution Width 17 % High 10.5-15 Platelet Count 95 10^3/uL Low 150-450 42 Mean Platelet Volume 10 um3 7.4-10.4 Abs Neutrophils 8.7 10^3/uL High 1.5-7.7 Abs Lymphocytes 1.0 10^3/uL 1.0-4.8 Abs Monocytes 1.1 10^3/uL High 0-0.8 Abs Eosinophils 0.1 10^3/uL 0-0.6 Abs Basophils 0.1 10^3/uL 0-0.2 Abs Nucleated RBC 0.01 10^3/uL Granulocyte % 79.0 % 38-83 Lymphocyte % 8.9 % Low 25-47 Monocyte % 10.3 % High 1-9 Eosinophil % 0.6 % 0-6 Basophil % 1.2 % 0-2 Nucleated Red Blood Cells % 0 Comp Metabolic Panel 01/31/2016 Sodium 132 mmol/L Low 133-145 Potassium 3.9 mmol/L 3.5-5.0 Chloride 108 mmol/L 101-111 Co2 Carbon Dioxide 19 mmol/L Low 22-32 Anion Gap 5 mmol/L 2-11 Glucose 109 mg/dL High 70-100 Blood Urea Nitrogen 12 mg/dL 6-24 Creatinine 0.77 mg/dL 0.67-1.17 BUN/Creatinine Ratio 15.6 8-20 Calcium 8.0 mg/dL Low 8.6-10.3 Total Protein 8.7 g/dL 6.4-8.9 Albumin 2.2 g/dL Low 3.2-5.2 Globulin 6.5 g/dL High 2-4 Albumin/Globulin Ratio 0.3 Low 1-3 Total Bilirubin 4.60 mg/dL High 0.2-1.0 Alkaline Phosphatase 74 U/L 34-104 Alt 31 U/L 7-52 Ast 70 U/L High 13-39 Egfr Non- 105.7 >60 Egfr 135.9 >60 43 Comp Metabolic Panel 04/05/2014 Sodium 133 mmol/L 133-145 Potassium 3.8 mmol/L 3.7-5.6 Chloride 97 mmol/L Low 101-111 Co2 Carbon Dioxide 24 mmol/L 22-32 Anion Gap 12 mmol/L High 2-11 Glucose 102 mg/dL High 70-100 Blood Urea Nitrogen 6 mg/dL 6-24 Creatinine 0.77 mg/dL 0.67-1.17 BUN/Creatinine Ratio 7.8 Low 8-20 Calcium 9.0 mg/dL 8.6-10.3 Total Protein 7.5 g/dL 6.4-8.9 Albumin 4.1 g/dL 3.2-5.2 Globulin 3.4 g/dL 2-4 Albumin/Globulin Ratio 1.2 1-3 Total Bilirubin 0.70 mg/dL 0.2-1.0 Alkaline Phosphatase 72 U/L 34-104 Alt 65 U/L High 7-52 Ast 100 U/L High 13-39 Egfr Non- 106.5 >60 Egfr 137.0 >60 44 Laboratory test finding 04/05/2014 Uric Acid 6.2 mg/dL 4.4-7.6 CBC Auto Diff 01/03/2014 White Blood Count 9.5 10^3/uL 4.8-10.8 Red Blood Count 4.63 10^6/uL 4.0-5.4 Hemoglobin 14.1 g/dL 14.0-18.0 Hematocrit 42 % 42-52 Mean Corpuscular Volume 91 fL 80-94 Mean Corpuscular Hemoglobin 31 pg 27-31 Mean Corpuscular HGB Conc 34 g/dL 31-36 Red Cell Distribution Width 13 % 10.5-15 Platelet Count 169 10^3/uL 150-450 Mean Platelet Volume 9 um3 7.4-10.4 Abs Neutrophils 8.3 10^3/uL High 1.5-7.7 Abs Lymphocytes 0.6 10^3/uL Low 1.0-4.8 Abs Monocytes 0.6 10^3/uL 0-0.8 Abs Eosinophils 0 10^3/uL 0-0.6 Abs Basophils 0 10^3/uL 0-0.2 Abs Nucleated RBC 0.01 10^3/uL Granulocyte % 87.3 % High 38-83 Lymphocyte % 6.5 % Low 25-47 Monocyte % 5.9 % 1-9 Eosinophil % 0 % 0-6 Basophil % 0.3 % 0-2 Nucleated Red Blood Cells % 0.1 Laboratory test finding 01/03/2014 C Reactive Protein 12.58 mg/L High &lt ; 5.00 45 Erythrocyte Sed Rate 22 mm/Hr High 0-20 Uric Acid 5.0 mg/dL 4.4-7.6 Comp Metabolic Panel 01/03/2014 Sodium 137 mmol/L 133-145 Potassium 3.9 mmol/L 3.7-5.6 Chloride 99 mmol/L Low 101-111 Co2 Carbon Dioxide 29 mmol/L 22-32 Anion Gap 9 mmol/L 2-11 Glucose 112 mg/dL High 70-100 Blood Urea Nitrogen 11 mg/dL 6-24 Creatinine 0.76 mg/dL 0.67-1.17 BUN/Creatinine Ratio 14.5 8-20 Calcium 9.3 mg/dL 8.6-10.3 Total Protein 7.5 g/dL 6.4-8.9 Albumin 4.0 g/dL 3.2-5.2 Globulin 3.5 g/dL 2-4 Albumin/Globulin Ratio 1.1 1-3 Total Bilirubin 0.60 mg/dL 0.2-1.0 Alkaline Phosphatase 64 U/L 34-104 Alt 76 U/L High 7-52 Ast 57 U/L High 13-39 Egfr Non- 108.1 >60 Egfr 139.1 >60 46 Comp Metabolic Panel 07/22/2013 Sodium 136 mmol/L 133-145 Potassium 4.0 mmol/L 3.5-5.0 Chloride 101 mmol/L 101-111 Co2 Carbon Dioxide 26.0 mmol/L 22-32 Anion Gap 9.0 mmol/L 2-11 Glucose 86 mg/dL 70-100 Blood Urea Nitrogen 3 mg/dL Low 6-24 Creatinine 0.70 mg/dL 0.50-1.40 BUN/Creatinine Ratio 4.3 Low 8-20 Calcium 8.3 mg/dL 8.1-9.9 Total Protein 6.5 g/dL 6.2-8.1 Albumin 3.6 g/dL 3.6-5.4 Globulin 2.9 g/dL 2-4 Albumin/Globulin Ratio 1.2 1-3 Total Bilirubin 0.8 mg/dL 0.4-1.5 Alkaline Phosphatase 95 U/L 30-110 Alt 80 U/L High 14-54 Ast 153 U/L High 12-42 Egfr Non- 119.4 >60 Egfr 153.5 >60 47 CBC Auto Diff 07/22/2013 White Blood Count 5.5 10^3/uL 4.8-10.8 Red Blood Count 4.47 10^6/uL 4.0-5.4 Hemoglobin 14.3 g/dL 14.0-18.0 Hematocrit 42 % 42-52 Mean Corpuscular Volume 93 fL 80-94 Mean Corpuscular Hemoglobin 32 pg High 27-31 Mean Corpuscular HGB Conc 34 g/dL 31-36 Red Cell Distribution Width 14 % 10.5-15 Platelet Count 193 10^3/uL 150-450 Mean Platelet Volume 8 um3 7.4-10.4 Abs Neutrophils 3.3 10^3/uL 1.5-7.7 Abs Lymphocytes 1.4 10^3/uL 1.0-4.8 Abs Monocytes 0.6 10^3/uL 0-0.8 Abs Eosinophils 0.1 10^3/uL 0-0.6 Abs Basophils 0.1 10^3/uL 0-0.2 Abs Nucleated RBC 0.01 10^3/uL Granulocyte % 61.1 % 38-83 Lymphocyte % 26.1 % 25-47 Monocyte % 10.5 % High 1-9 Eosinophil % 1.3 % 0-6 Basophil % 1.0 % 0-2 Nucleated Red Blood Cells % 0.2 Laboratory test 07/22/2013 C Reactive Protein < 5.0 mg/dL High Less than 0.5 48 finding Erythrocyte Sed Rate 9 mm/Hr 0-20 49 Uric Acid 10.1 mg/dL High 2.6-7.2 50 CBC Auto Diff 04/26/2013 White Blood Count 4.8 10^3/uL 4.8-10.8 Red Blood Count 4.63 10^6/uL 4.0-5.4 Hemoglobin 14.5 g/dL 14.0-18.0 Hematocrit 42 % 42-52 Mean Corpuscular Volume 91 fL 80-94 Mean Corpuscular Hemoglobin 31 pg 27-31 Mean Corpuscular HGB Conc 34 g/dL 31-36 Red Cell Distribution Width 13 % 10.5-15 Platelet Count 175 10^3/uL 150-450 Mean Platelet Volume 9 um3 7.4-10.4 Abs Neutrophils 2.8 10^3/uL 1.5-7.7 Abs Lymphocytes 1.3 10^3/uL 1.0-4.8 Abs Monocytes 0.5 10^3/uL 0-0.8 Abs Eosinophils 0.2 10^3/uL 0-0.6 Abs Basophils 0 10^3/uL 0-0.2 Abs Nucleated RBC 0 10^3/uL Granulocyte % 58.7 % 38-83 Lymphocyte % 27.1 % 25-47 Monocyte % 9.7 % High 1-9 Eosinophil % 3.5 % 0-6 Basophil % 1.0 % 0-2 Nucleated Red Blood Cells % 0 Comp Metabolic Panel 04/26/2013 Sodium 137 mmol/L 133-145 Potassium 3.6 mmol/L 3.5-5.0 Chloride 105 mmol/L 101-111 Co2 Carbon Dioxide 23.0 mmol/L 22-32 Anion Gap 9.0 mmol/L 2-11 Glucose 84 mg/dL 70-100 Blood Urea Nitrogen 5 mg/dL Low 6-24 Creatinine 0.60 mg/dL 0.50-1.40 BUN/Creatinine Ratio 8.3 8-20 Calcium 9.2 mg/dL 8.1-9.9 Total Protein 7.5 g/dL 6.2-8.1 Albumin 3.5 g/dL Low 3.6-5.4 Globulin 4.0 g/dL 2-4 Albumin/Globulin Ratio 0.9 Low 1-3 Total Bilirubin 0.6 mg/dL 0.4-1.5 Alkaline Phosphatase 96 U/L 30-110 Alt 117 U/L High 14-54 Ast 151 U/L High 12-42 Egfr Non- 142.6 >60 Egfr 183.4 >60 51 Laboratory test finding 04/26/2013 Uric Acid 5.1 mg/dL 2.6-7.2 Cyclic Citrullinated Pept IgG <15.6 U 52 Laboratory test finding 02/01/2013 Uric Acid 12.4 mg/dL High 2.6-7.2 CBC Auto Diff 02/01/2013 White Blood Count 7.5 10^3/uL 4.8-10.8 Red Blood Count 4.55 10^6/uL 4.0-5.4 Hemoglobin 14.1 g/dL 14.0-18.0 Hematocrit 41 % Low 42-52 Mean Corpuscular Volume 89 fL 80-94 Mean Corpuscular Hemoglobin 31 pg 27-31 Mean Corpuscular HGB Conc 35 g/dL 31-36 Red Cell Distribution Width 13 % 10.5-15 Platelet Count 174 10^3/uL 150-450 Mean Platelet Volume 8 um3 7.4-10.4 Abs Neutrophils 5.4 10^3/uL 1.5-7.7 Abs Lymphocytes 1.3 10^3/uL 1.0-4.8 Abs Monocytes 0.6 10^3/uL 0-0.8 Abs Eosinophils 0.1 10^3/uL 0-0.6 Abs Basophils 0.1 10^3/uL 0-0.2 Abs Nucleated RBC 0.01 10^3/uL Granulocyte % 72.4 % 38-83 Lymphocyte % 17.7 % Low 25-47 Monocyte % 7.8 % 1-9 Eosinophil % 1.3 % 0-6 Basophil % 0.8 % 0-2 Nucleated Red Blood Cells % 0.1 Liver Function Panel 02/01/2013 Alt 57 U/L High 14-54 Ast 87 U/L High 12-42 Alkaline Phosphatase 88 U/L 30-110 Direct Bilirubin 0.1 mg/dL 0.1-0.5 Total Bilirubin 0.5 mg/dL 0.4-1.5 Albumin 3.5 g/dL Low 3.6-5.4 Comp Metabolic Panel 10/26/2012 Sodium 135 mmol/L 133-145 Potassium 3.9 mmol/L 3.5-5.0 Chloride 101 mmol/L 101-111 Co2 Carbon Dioxide 23.0 mmol/L 22-32 Anion Gap 11.0 mmol/L 2-11 Glucose 122 mg/dL High 70-100 Blood Urea Nitrogen 4 mg/dL Low 6-24 Creatinine 0.80 mg/dL 0.50-1.40 BUN/Creatinine Ratio 5.0 Low 8-20 Calcium 9.4 mg/dL 8.1-9.9 Total Protein 8.1 g/dL 6.2-8.1 Albumin 4.0 g/dL 3.6-5.4 Globulin 4.1 g/dL High 2-4 Albumin/Globulin Ratio 1.0 1-3 Total Bilirubin 0.5 mg/dL 0.4-1.5 Alkaline Phosphatase 69 U/L 30-110 Alt 71 U/L High 14-54 Ast 75 U/L High 12-42 Egfr Non- 102.7 >60 Egfr 132.1 >60 53 Laboratory test finding 10/26/2012 C Reactive Protein 1.4 mg/dL High Less than 0.5 Uric Acid 14.6 mg/dL High 2.6-7.2 CBC With Manual Diff 10/26/2012 White Blood Count 7.5 10^3/uL 4.8-10.8 Red Blood Count 5.00 10^6/uL 4.0-5.4 Hemoglobin 15.4 g/dL 14.0-18.0 Hematocrit 44 % 42-52 Mean Corpuscular Volume 88 fL 80-94 Mean Corpuscular Hemoglobin 31 pg 27-31 Mean Corpuscular HGB Conc 35 g/dL 31-36 Red Cell Distribution Width 13 % 10.5-15 Platelet Count 210 10^3/uL 150-450 Platelet Morphology Large Mean Platelet Volume 8 um3 7.4-10.4 Abs Neutrophils 5.5 10^3/uL 1.5-7.7 Abs Lymphocytes 1.3 10^3/uL 1.0-4.8 Abs Monocytes 0.6 10^3/uL 0-0.8 Abs Eosinophils 0 10^3/uL 0-0.6 Abs Basophils 0 10^3/uL 0-0.2 Abs Nucleated RBC 0 10^3/uL Neutrophil % 84 % High 38-83 Band % 2 % 0-8 Lymphocytes % 8 % Low 25-47 Monocytes % 5 % 0-13 Metamyelocytes % 1 % 0-2 RBC Morphology Normal Normal Laboratory test finding 10/26/2012 Erythrocyte Sed Rate 10 mm/Hr 0-14 54 Pathologist Review (SEE NOTE) 55 1 Please check 2 days before follow up 2 Please check 2 days before follow up 3 [id number] SEE RESULT BELOW Name: EDIL BUTLER : [address]: Dexter Lawler MD Acct: [id number] Unit: [id number] AGE: 56 Location: [facility] Re06/01/17 SEX: M Status: FRITZ OTERO SPEC: [id number] JOSE: 06/01/171205 [facility] DR: Dexter Lawler MD REQ: [id number] RECD: 06/01/176242 STATUS: SOUT _ ORDERED: LEVEL 3/2 COMMENTS: [id number] FINAL DIAGNOSIS 1. Right elbow, excision: -- Gouty tophus. 2. Right hand, excision: -- Gouty tophus. PRE-OPERATIVE DIAGNOSIS Right posterior elbow mass, right and left hand masses GROSS DESCRIPTION 1. The specimen is received in formalin labeled, Right Elbow Tophus, and consists of a 6.0 x 5.7 x 3.7 cm chalky perez-white to yellow irregular to nodular rubbery portion of soft tissue. The cut surface is rubbery to pasty chalky perez-white. Beauty Counselor sections, two cassettes. 2. The specimen is received in formalin labeled, Right Hand Tops, and consists of a 3.6 x 2.9 by up to 0.9 cm chalky yellow-white irregular rubbery soft tissue fragment. The cut surface is rubbery to focally pasty chalky perez-white. Beauty Counselor sections, one cassette. Signed (signature on file) Omaira Casillas MD 1512 END OF REPORT * ML=Testing performed at Main Lab DEPARTMENT OF PATHOLOGY, [address] [place] [address] Awais Yo M.D. Director [facility] # [id number] 5 ADDITIONAL INFORMATION Testing performed by [facility]. This test was developed and its performance characteristics determined by [facility] in a manner consistent with CLIA requirements. This test has not been cleared or approved by the U.S. Food and Drug Administration. 6 ADDITIONAL INFORMATION Testing performed by Liquid Chromatography-Tandem Mass Spectrometry (LC-MS/MS). This test was developed and its performance characteristics determined by [facility] in a manner consistent with CLIA requirements. This test has not been cleared or approved by the U.S. Food and Drug Administration. Test Performed by: [address] [address] 7 Consistent with previous results on 12/20/16. 8 Because ethnic data is not always readily available, this report includes an eGFR for both -Americans and non- Americans. The National Kidney Disease Education Program (NKDEP) does not endorse the use of the MDRD equation for patients that are not between the ages of 18 and 70, are , have extremes of body size, muscle mass, or nutritional status, or are non- or non-. According to the National Kidney Foundation, irrespective of diagnosis, the stage of the disease is based on the level of kidney function: Stage Description GFR(mL/min/1.73 m(2)) 1 Kidney damage with normal or decreased GFR 90 2 Kidney damage with mild decrease in GFR 60-89 3 Moderate decrease in GFR 30-59 4 Severe decrease in GFR 15-29 5 Kidney failure <15 (or dialysis) 9 Verified by smear review. --- 11/27/16 1710 --- Platelet Count previously reported as: 68 L 10 3/ul 10 Because ethnic data is not always readily available, this report includes an eGFR for both -Americans and non- Americans. The National Kidney Disease Education Program (NKDEP) does not endorse the use of the MDRD equation for patients that are not between the ages of 18 and 70, are , have extremes of body size, muscle mass, or nutritional status, or are non- or non-. According to the National Kidney Foundation, irrespective of diagnosis, the stage of the disease is based on the level of kidney function: Stage Description GFR(mL/min/1.73 m(2)) 1 Kidney damage with normal or decreased GFR 90 2 Kidney damage with mild decrease in GFR 60-89 3 Moderate decrease in GFR 30-59 4 Severe decrease in GFR 15-29 5 Kidney failure <15 (or dialysis) 11 SEE RESULT BELOW Name: EDIL BUTLER : [address]: J Luis Toledo MD Acct: [id number] Unit: [id number] AGE: 55 Location: ENDO Re08/22/16 SEX: M Status: DEP REF SPEC: [id number] JOSE: 08/22/16-[address] [facility] [address]: J Luis Toledo MD REQ: [id number] RECD: 08/22/16-1253 STATUS: KIRAN DACOSTA DR: Jayme Barr MD _ ORDERED: LEVEL IV FINAL DIAGNOSIS Colon, 15 cm, biopsy: -- Tubular adenoma. -- No high grade dysplasia or malignancy. CLINICAL HISTORY Anemia, cirrhosis POST-OPERATIVE DIAGNOSIS Esophagus - Grade I-II esophageal varices, very difficult intubation, UES; stomach - PHG; duodenum normal. Colonoscopy to cecum with no mass cecum; polyp at 15 cm.; diverticulosis; very difficult, very swollen tissue GROSS DESCRIPTION The specimen is received in formalin labeled, Colon Polyp at 15 cm, and consists of a 0.8 x 0.5 by up to 0.3 cm aggregate of perez-white irregular soft tissue fragments, which is submitted entirely in one cassette. Signed (signature on file) Awais Yo MD 1311 END OF REPORT * ML=Testing performed at Main Lab DEPARTMENT OF PATHOLOGY, [address] [place] [address] Awais Yo M.D. Director [facility] # [id number] 12 FASTING 10 HOUR 13 Desirable <150 Borderline high 150-199 High 200-499 Very High >500 14 Desirable <200 Borderline high 200-239 High >239 15 Low <40 Desirable: 40-60 High: >60 16 Desirable: <100 mg/dL Near Optimal: 100-129 mg/dL Borderline High: 130-159 mg/dL High: 160-189 mg/dL Very High: >189 mg/dL 17 Please add on to the next lab draw 18 Please add on to the next lab draw 19 Test Performed by: [place] [address] Wallpaper Installer: Dariel Luz II, M.D., Ph.D. 20 Test Performed by: [place] [address] Wallpaper Installer: Dariel Luz II, M.D., Ph.D. 21 Normal Range 180 to 914 Indeterminate Range 145 to 180 Deficient Range <145 22 Consistent with previous results on 05-07 . 23 Consistent with previous results on 05/02/16. 24 SEE RESULT BELOW Name: EDIL BUTLER : [address]: Yossi Sykes MD Acct: [id number] Unit: [id number] AGE: 55 Location: ED Re04/29/16 SEX: M Status: REG ER SPEC: [id number] JOSE: 04/29/[address]: Yossi Sykes MD REQ: [id number] RECD: 04/29/16 STATUS: PAULINE DACOSTA DR: J Luis Molina MD _ SOURCE: STOOL SPDESC: ORDERED: Hemoccult Procedure Result Reported Site Stool Occult Blood Final 04/29/16- 2101 ML Stool Occult Blood Positive * ML - MAIN LAB ([facility]) . END OF REPORT * ML=Testing performed at Main Lab DEPARTMENT OF PATHOLOGY, [address] [place] [address] Awais Yo M.D. Director [facility] # [id number] 25 Consistent with previous results on 04-22. 26 Critical Result LACT:2.5 Called to OC at: 19:36:31 by:[id number] Read back by:[id number] [facility] Severe Sepsis and Septic Shock Management Bundle Measure requires all lactic acids initially measuring >2.0 mmol/L be repeated. 27 Because ethnic data is not always readily available, this report includes an eGFR for both -Americans and non- Americans. The National Kidney Disease Education Program (NKDEP) does not endorse the use of the MDRD equation for patients that are not between the ages of 18 and 70, are , have extremes of body size, muscle mass, or nutritional status, or are non- or non-. According to the National Kidney Foundation, irrespective of diagnosis, the stage of the disease is based on the level of kidney function: Stage Description GFR(mL/min/1.73 m(2)) 1 Kidney damage with normal or decreased GFR 90 2 Kidney damage with mild decrease in GFR 60-89 3 Moderate decrease in GFR 30-59 4 Severe decrease in GFR 15-29 5 Kidney failure <15 (or dialysis) 28 Reference Range and Interpretation: TnI (ng/mL) Interpretation Less Than 0.03 ng/mL Not supportive of diagnosis of ME 0.03 - 0.50 ng/mL Indeterminate: suggest serial studies if clinically indicated. Greater than 0.5 ng/mL Consistent with diagnosis of ME 29 PLEASE CALL RESULTS TO DR AVITIA [phone] 30 PLEASE CALL RESULTS TO DR AVITIA [phone] 31 Because ethnic data is not always readily available, this report includes an eGFR for both -Americans and non- Americans. The National Kidney Disease Education Program (NKDEP) does not endorse the use of the MDRD equation for patients that are not between the ages of 18 and 70, are , have extremes of body size, muscle mass, or nutritional status, or are non- or non-. According to the National Kidney Foundation, irrespective of diagnosis, the stage of the disease is based on the level of kidney function: Stage Description GFR(mL/min/1.73 m(2)) 1 Kidney damage with normal or decreased GFR 90 2 Kidney damage with mild decrease in GFR 60-89 3 Moderate decrease in GFR 30-59 4 Severe decrease in GFR 15-29 5 Kidney failure <15 (or dialysis) 32 Consistent with previous results on 04/17/16. 33 SEE RESULT BELOW Name: EDIL BUTLER : [address]: Norberto Vides MD Acct: [id number] Unit: [id number] AGE: 55 Location: ED Re04/15/16 SEX: M Status: REG ER SPEC: [id number] JOSE: 04/15/16-[address] [facility] [address]: Norberto Vides MD REQ: [id number] RECD: 04/15/16-1258 STATUS: PAULINE DACOSTA DR: Ananda Molina MD _ SOURCE[facility]: ORDERED: Hemoccult Procedure Result Reported Site Stool Occult Blood Final 04/15/16- 1300 ML Stool Occult Blood Negative * ML - [facility]) . END OF REPORT * ML=Testing performed at Main Lab DEPARTMENT OF PATHOLOGY, [address] [place] [address] Awais Yo M.D. Director [facility] # [id number] 34 SEE RESULTS BELOW [id number] AN TRANSFUSED 04/15/[id number] [facility] Severe Sepsis and Septic Shock Management Bundle Measure requires all lactic acids initially measuring >2.0 mmol/L be repeated. 36 *Ascorbic acid is present which may interfere with detection of blood. 37 Because ethnic data is not always readily available, this report includes an eGFR for both -Americans and non- Americans. The National Kidney Disease Education Program (NKDEP) does not endorse the use of the MDRD equation for patients that are not between the ages of 18 and 70, are , have extremes of body size, muscle mass, or nutritional status, or are non- or non-. According to the National Kidney Foundation, irrespective of diagnosis, the stage of the disease is based on the level of kidney function: Stage Description GFR(mL/min/1.73 m(2)) 1 Kidney damage with normal or decreased GFR 90 2 Kidney damage with mild decrease in GFR 60-89 3 Moderate decrease in GFR 30-59 4 Severe decrease in GFR 15-29 5 Kidney failure <15 (or dialysis) 38 Reference Range and Interpretation: TnI (ng/mL) Interpretation Less Than 0.03 ng/mL Not supportive of diagnosis of ME 0.03 - 0.50 ng/mL Indeterminate: suggest serial studies if clinically indicated. Greater than 0.5 ng/mL Consistent with diagnosis of ME 39 Because ethnic data is not always readily available, this report includes an eGFR for both -Americans and non- Americans. The National Kidney Disease Education Program (NKDEP) does not endorse the use of the MDRD equation for patients that are not between the ages of 18 and 70, are , have extremes of body size, muscle mass, or nutritional status, or are non- or non-. According to the National Kidney Foundation, irrespective of diagnosis, the stage of the disease is based on the level of kidney function: Stage Description GFR(mL/min/1.73 m(2)) 1 Kidney damage with normal or decreased GFR 90 2 Kidney damage with mild decrease in GFR 60-89 3 Moderate decrease in GFR 30-59 4 Severe decrease in GFR 15-29 5 Kidney failure <15 (or dialysis) 40 Because ethnic data is not always readily available, this report includes an eGFR for both -Americans and non- Americans. The National Kidney Disease Education Program (NKDEP) does not endorse the use of the MDRD equation for patients that are not between the ages of 18 and 70, are , have extremes of body size, muscle mass, or nutritional status, or are non- or non-. According to the National Kidney Foundation, irrespective of diagnosis, the stage of the disease is based on the level of kidney function: Stage Description GFR(mL/min/1.73 m(2)) 1 Kidney damage with normal or decreased GFR 90 2 Kidney damage with mild decrease in GFR 60-89 3 Moderate decrease in GFR 30-59 4 Severe decrease in GFR 15-29 5 Kidney failure <15 (or dialysis) 41 Acute inflammation: >10.00 42 Consistent with previous results on 01/23/16. 43 Because ethnic data is not always readily available, this report includes an eGFR for both -Americans and non- Americans. The National Kidney Disease Education Program (NKDEP) does not endorse the use of the MDRD equation for patients that are not between the ages of 18 and 70, are , have extremes of body size, muscle mass, or nutritional status, or are non- or non-. According to the National Kidney Foundation, irrespective of diagnosis, the stage of the disease is based on the level of kidney function: Stage Description GFR(mL/min/1.73 m(2)) 1 Kidney damage with normal or decreased GFR 90 2 Kidney damage with mild decrease in GFR 60-89 3 Moderate decrease in GFR 30-59 4 Severe decrease in GFR 15-29 5 Kidney failure <15 (or dialysis) 44 Because ethnic data is not always readily available, this report includes an eGFR for both -Americans and non- Americans. The National Kidney Disease Education Program (NKDEP) does not endorse the use of the MDRD equation for patients that are not between the ages of 18 and 70, are , have extremes of body size, muscle mass, or nutritional status, or are non- or non-. According to the National Kidney Foundation, irrespective of diagnosis, the stage of the disease is based on the level of kidney function: Stage Description GFR(mL/min/1.73 m(2)) 1 Kidney damage with normal or decreased GFR 90 2 Kidney damage with mild decrease in GFR 60-89 3 Moderate decrease in GFR 30-59 4 Severe decrease in GFR 15-29 5 Kidney failure <15 (or dialysis) 45 Acute inflammation: >10.00 46 Because ethnic data is not always readily available, this report includes an eGFR for both -Americans and non- Americans. The National Kidney Disease Education Program (NKDEP) does not endorse the use of the MDRD equation for patients that are not between the ages of 18 and 70, are , have extremes of body size, muscle mass, or nutritional status, or are non- or non-. According to the National Kidney Foundation, irrespective of diagnosis, the stage of the disease is based on the level of kidney function: Stage Description GFR(mL/min/1.73 m(2)) 1 Kidney damage with normal or decreased GFR 90 2 Kidney damage with mild decrease in GFR 60-89 3 Moderate decrease in GFR 30-59 4 Severe decrease in GFR 15-29 5 Kidney failure <15 (or dialysis) 47 Because ethnic data is not always readily available, this report includes an eGFR for both -Americans and non- Americans. The National Kidney Disease Education Program (NKDEP) does not endorse the use of the MDRD equation for patients that are not between the ages of 18 and 70, are , have extremes of body size, muscle mass, or nutritional status, or are non- or non-. According to the National Kidney Foundation, irrespective of diagnosis, the stage of the disease is based on the level of kidney function: Stage Description GFR(mL/min/1.73 m(2)) 1 Kidney damage with normal or decreased GFR 90 2 Kidney damage with mild decrease in GFR 60-89 3 Moderate decrease in GFR 30-59 4 Severe decrease in GFR 15-29 5 Kidney failure <15 (or dialysis) 48 standing order 49 standing order 50 standing order 51 Because ethnic data is not always readily available, this report includes an eGFR for both -Americans and non- Americans. The National Kidney Disease Education Program (NKDEP) does not endorse the use of the MDRD equation for patients that are not between the ages of 18 and 70, are , have extremes of body size, muscle mass, or nutritional status, or are non- or non-. According to the National Kidney Foundation, irrespective of diagnosis, the stage of the disease is based on the level of kidney function: Stage Description GFR(mL/min/1.73 m(2)) 1 Kidney damage with normal or decreased GFR 90 2 Kidney damage with mild decrease in GFR 60-89 3 Moderate decrease in GFR 30-59 4 Severe decrease in GFR 15-29 5 Kidney failure <15 (or dialysis) 52 -- REFERENCE VALUE -- <20.0 (Negative) Test Performed by: [address] [address] Wallpaper Installer: Jassi Plata III, M.D. 53 Because ethnic data is not always readily available, this report includes an eGFR for both -Americans and non- Americans. The National Kidney Disease Education Program (NKDEP) does not endorse the use of the MDRD equation for patients that are not between the ages of 18 and 70, are , have extremes of body size, muscle mass, or nutritional status, or are non- or non-. According to the National Kidney Foundation, irrespective of diagnosis, the stage of the disease is based on the level of kidney function: Stage Description GFR(mL/min/1.73 m(2)) 1 Kidney damage with normal or decreased GFR 90 2 Kidney damage with mild decrease in GFR 60-89 3 Moderate decrease in GFR 30-59 4 Severe decrease in GFR 15-29 5 Kidney failure <15 (or dialysis) 54 @10/27/12 1406: Path Review added. RFLXG=PATH. 55 CBC and smear reviewed. REVIEWED BY AWAIS YO MD Procedures Date CPT Code Description Status 06/30/2017 14520 Destruction Of Benign Lesions Any Method 1-14 lesions Completed 06/09/2017 49276 Destruction Of Benign Lesions Any Method 1-14 lesions Completed 06/01/2017 56298 Excision Tumor/Vasular Malform Hand/Finger Subfascial Completed < 1.5 CM 06/01/2017 17280 Excision Tumor/Vasular Malform Hand/Finger Subfascial Completed < 1.5 CM 06/01/2017 34824 Excision,Tumor Deep,Subfascial Or Intramuscular Completed 06/01/2017 15376 Excision,Tumor Deep,Subfascial Or Intramuscular Completed 05/26/2017 05018 Destruction Of Benign Lesions Any Method 1-14 lesions Completed 05/04/2017 12057 Destruction Of Benign Lesions Any Method 1-14 lesions Completed 05/04/2017 70757 Destruction ALL Benign Or Premalignant Lesion (Other Completed Than [place] 08/22/2016 Colonoscopy Completed Encounters Type Date Location Provider CPT E/M Dx Office Visit 07/24/2017 4:00p [facility] [address] Internal Toni Barr, 72452 K70.31 Medicine - [place] Maximus Regan,FACP M1A.0611 Office Visit 06/17/2017 3:40p [facility] Yemi Mckay, 43130 M1A.0211 Of Edwin Regan M1A.0411 Z79.899 Office Visit 05/18/2017 11:40a [facility] [address] Internal Toni Barr, [address] Z01.810 Medicine - [place] [address] M.Silvio,FACP M1A.0211 M1A.0411 K70.30 D69.6 Office Visit 05/04/2017 3:40p [facility] [address] [place] [address] L21.8 B07.0 R20.8 Z78.9 S90.922A L53.8 L57.0 Office Visit 05/01/2017 9:30a [place] [address] M1A.0211 Of C.M.AMaria De Jesus M1A.0411 M1A.0421 Office Visit 04/17/2017 4:00p [facility] [address] Internal Toni Barr, 68965 K70.30 Medicine - [place] Maximus Carbajal.Silvio,FACP E03.9 B07.0 M1A.0211 Office Visit 01/21/2017 3:40p [facility] [address] Internal Toni Barr, 49856 K70.30 Medicine - [place] Maximus Carbajal.Silvio,FACP L30.9 Z23 E03.9 Office Visit 11/20/2016 3:40p [facility] [address] Internal Toni Barr, 64828 Z00.01 Medicine - [place] [address] M.Silvio,FACP K70.30 R04.0 M75.102 J32.9 L30.9 Office Visit 09/17/2016 3:00p [facility]ology Services Of Yemi Mckay 86773 M10.9 Edwin Regan M25.512 Office Visit 08/14/2016 9:50a [facility] [address] Internal Medicine Toni Barr, 67508 D37.4 - [place] Maximus Regan,FACP D64.9 K70.30 Office Visit 06/17/2016 4:00p Rheumatology Services Yemi Mckay 96695 M1A.09x1 Of Edwin Regan D64.9 Z79.899 Office Visit 06/12/2016 4:20p [facility] [address] Internal Medicine Toni Barr, 15257 D64.9 - [place] [address] Shereen,FACP K70.40 E03.9 G47.00 Z23 Office Visit 05/08/2016 4:00p [facility] [address] Internal Medicine - Bijan Claudio, [employer]ATION INSPECTOR [address] D64.9 G47.00 Office Visit 05/06/2016 4:20p Rheumatology Services Yemi Mckay, 58335 M1A.09x1 Of Edwin Regan Office Visit 05/02/2016 1:57p [facility] Izzy Rios, N.P. 15765 K72.90 Assoc, Hospitalists K70.30 E03.9 D64.9 Office Visit 05/01/2016 1:56p [facility] Assoc, Izzy Rios, N.P. 61998 K72.90 Hospitalists K70.30 E03.9 E64.9 Office Visit 04/30/2016 1:55p [facility] Assoc, Stanley Adams M.D. 63368 K72.90 Hospitalists K70.30 E03.9 D64.9 Office Visit 04/22/2016 10:40a [facility] [address] Internal Ananda Molina, 79259 K72.90 Medicine - [place] Maximus Regan D64.9 K92.2 R94.6 F32.9 Office Visit 04/17/2016 3:42p [facility] Assoc, Dexter Arce 88663 K72.90 Hospitalists Shereen K70.30 K92.2 Office Visit 04/15/2016 3:41p [facility] Lexie Huerta, NIEVES 41921 K72.90 Assoc, Hospitalists K70.30 K92.2 Office Visit 03/07/2016 11:40a [facility] [address] Internal Ananda Molina, 45674 K70.31 Raymond Quezada M.D. F32.9 E87.1 E03.9 D64.9 G47.00 Office Visit 03/07/2016 10:20a Rheumatology Services Yemi Mckay 65219 M1A.09x1 Of Edwin Regan K70.31 D69.6 Office Visit 02/15/2016 2:00p [facility] [address] Internal Ananda Molina, 68274 K70.31 Raymond Quezada M.D. D69.6 F32.9 E87.1 Office Visit 02/08/2016 9:00a [facility] [address] Internal Medicine Ananda Molina, 78113 E03.9 - Damien Regan E87.1 F32.9 K70.31 R05 Office Visit 02/01/2016 10:20a Rheumatology Services Tommie Tad, 89150 M1A.0611 Of Edwin Regan M1A.0621 M1A.0321 M1A.0311 R74.0 Office Visit 01/31/2016 1:00p [facility] [address] Internal Ananda Molina, 78288 K70.31 Medicine - [place] Shereen E87.1 M10.9 K21.9 F32.9 Office Visit 01/24/2016 9:19a [facility] Cedrick Rush, 47244 I85.01 Assoc,pc Hospitalists MSanam D68.9 D69.6 F19.10 Office Visit 01/23/2016 9:16a [facility] Cedrick Rush, 40390 I85.01 Assoc,pc Hospitalists MSanam D68.9 D69.6 F19.10 Office Visit 01/22/2016 9:16a [facility] Cedrick Rush, 17765 I85.01 Assoc,pc Hospitalists MSanam D68.9 D69.6 F19.10 Office Visit 01/21/2016 9:12a [facility] Cedrick Rush, 26179 I85.01 Assoc,pc Hospitalists MSanam D68.9 D69.6 F19.10 Office Visit 01/20/2016 9:11a [facility] Cedrick Rush, 32076 I85.01 Assoc,pc Hospitalists M.DMaria De Jesus D68.9 D69.6 F19.10 Office Visit 01/19/2016 9:11a [facility] Cedrick Rush, 82075 I85.01 Assoc,pc Hospitalists MMaria De JesusDMaria De Jesus F19.10 D68.9 D69.6 Office Visit 01/18/2016 9:10a [facility] Genevieve Hohn, 01303 I85.01 Assoc,pc Hospitalists MSanam F19.10 D68.9 D69.6 Office Visit 01/17/2016 9:09a [facility] ,pc Stanley Adams M.D. 89625 I85.01 Hospitalists F19.10 D68.9 D69.6 Office Visit 04/05/2014 10:40a [facility] Tommie Endo, 36473 274.82 Of Referral Agent M.D. V58.69 Office Visit 01/03/2014 1:40p [facility] Tommie Endo, 49904 274.82 Of Referral Agent M.D. V58.69 Office Visit 10/25/2013 2:20p [facility] Tommie Endo, 66387 274.82 Of Referral Agent M.D. V58.69 Office Visit 07/22/2013 1:40p [facility] Services Tommie Endo, 97906 274.82 Of Referral Agent M.D. 274.9 V58.69 794.8 Office Visit 04/26/2013 2:40p [facility] Tommie Endo, 46859 274.82 Of Referral Agent M.D. V58.69 Office Visit 02/01/2013 1:00p [facility] Services Tommie Endo, 85596 274.82 Of Referral Agent M.D. 274.9 Office Visit 10/29/2012 1:20p [facility] Services Tommie Endo, 75566 274.82 Of Referral Agent M.D. Office Visit 08/05/2012 3:00p [facility] Services Tommie Endo, 61633 274.9 Of Referral Agent M.D. 795.79 274.82 Plan of Care Future Appointment(s):08/31/2017 7:45 am - HALEY López at [facility]11/25/2017 9:00 am - Toni Barr M.D.,FACP at [facility] [address] Internal Medicine - [address]08/31/2017 7:45 am - Dexter Lawler MD at [facility]09/11/2017 3:30 pm - Dexter Lawler MD at [facility]03/17/2018 10:00 am - Yemi Mckay M.D. at [facility] [address]08/18/2017 - Dexter Lawler, MDM1A.0211 Idiopathic chronic gout, right elbow, with tophus (tophi)Follow up:Follow up: 10-14 days [id number] Idiopathic chronic gout, right hand, with tophus (tophi)
[2017-08-29 15:58] LABS: INR 1.4 (0.77-1.02)
[2017-08-29 16:02] LABS: ABS Basophils 0.1 10^3/ul (0-0.2); ABS Eosinophils 0.6 10^3/ul (0-0.6); ABS Lymphocytes 1.9 10^3/ul (1.0-4.8); ABS Monocytes 0.9 10^3/ul (0-0.8); ABS Neutrophils 6.8 10^3/ul (1.5-7.7); ABS Nucleated RBC 0 10^3/ul; Eosinophil % 5.7 % (0-6); Hematocrit 27 % (42-52); Hemoglobin 8.9 g/dl (14.0-18.0); Lymphocyte % 18.3 % (25-47); Mean Corpuscular HGB Conc 33 g/dl (31-36); Mean Corpuscular Hemoglobin 28 pg (27-31); Mean Corpuscular Volume 83 fL (80-94); Mean Platelet Volume 9 um3 (7.4-10.4); Nucleated Red Blood Cells % 0; Platelet Count 96 10^3/ul (150-450); Red Blood Count 3.22 10^6/ul (4.0-5.4); Red Cell Distribution Width 16 % (10.5-15); White Blood Count 10.3 10^3/ul (3.5-10.8)
--- NOTE | 2017-08-29 17:34 | ED ---
Lb Gandhi Julia, scribed for Aniyah Patel MD on 08/29/17 at 1630 . Abdominal Pain/Male - HPI Summary HPI Summary: This patient is a 56 year old M BIBA to [facility] with a chief complaint of hematemesis. EMS reports vomiting bright red blood (400-500 cc). Patient was given 100c of fluids, 4 Zofran. Patient did not vomit in presence, no syncope in presence. Patient complains of weakness. Patient was seen at [facility] in [place] to have varices banded on 08/11. - History of Current Complaint Chief Complaint: EDGIBleed Stated Complaint: VOMITING BLOOD Time Seen by Provider: 08/29/17 15:17 Hx Obtained From: EMS Pain Intensity: 0 - Allergies/Home Medications Allergies/Adverse Reactions: Allergies Allergy/AdvReac Type Severity Reaction Status Date / Time No Known Allergies Allergy Verified 08/29/17 15:35 PMH/Surg Hx/FS Hx/Imm Hx Endocrine/Hematology History: Reports: Hx Thyroid Disease Denies: Hx Diabetes Cardiovascular History: Denies: Hx Congestive Heart Failure, Hx Hypertension, Hx Pacemaker/ICD Respiratory History: Comment Only: Hx Asthma - IN YOUTH, NONE SINCE GI History: Reports: Hx Cirrhosis, Hx Gastroesophageal Reflux Disease History: Denies: Hx Dialysis, Hx Renal Disease Musculoskeletal History: Reports: Hx Arthritis - MANY JOINTS, Hx Gout - multiple joints, Other Musculoskeletal History - total R hip replacement Sensory History: Reports: Hx Contacts or Glasses - READING Denies: Hx Hearing Aid Opthamlomology History: Reports: Hx Contacts or Glasses - READING Psychiatric History: Reports: Hx Depression - ON DAILY MEDS, Hx Substance Abuse - hx etoh abuse Denies: Hx Panic Disorder - Surgical History Surgery Procedure, Year, and Place: RIGHT Hip fracture -REPLACEMENT december 2005 in [place] Hx Anesthesia Reactions: No Infectious Disease History: No Infectious Disease History: Denies: Traveled Outside the [place] in Last 30 Days - Family History Known Family History: Positive: Diabetes - Social History Alcohol Use: Quit 01/30 Alcohol Amount: 3-5 drinks daily Substance Use Type: Reports: None Smoking Status (MU): Never Smoked Tobacco Have You Smoked in the Last Year: No Review of Systems Positive: Fatigue Positive: Other - hematemisis All Other Systems Reviewed And Are Negative: No Physical Exam - Summary Physical Exam Summary: Appearance: Alert, conversive, nontoxic appearing Skin: Warm, dry, no mottling, no rashes, no contusions, extreme pallor HEENT: EOMI, PERRL, moist mucous membranes Neck: No masses on the neck, supple Respiratory: Clear to auscultation, breath sounds present, no rales, no rhonchi , no wheezes Cardiovascular: RRR, pulses are symmetrical in both lower and upper extremities Abdomen: Soft, non-tender Bowel Sounds: Present Musculoskeletal: No CVA tenderness, no obvious deformity, moving all extremities in a grossly normal manner Neurological: A&Ox3, CN II-XII Intact, moving all extremities symmetrically Psychiatric: Normal affect and mood Triage Information Reviewed: Yes Vital Signs On Initial Exam: Initial Vitals Temp Pulse Resp BP Pulse Ox 97.8 F 93 12 115/66 100 08/29/17 15:15 08/29/17 15:15 08/29/17 15:15 08/29/17 15:15 08/29/17 15:15 Vital Signs Reviewed: Yes - Wilfredo Coma Scale Coma Scale Total: 15 Diagnostics - Vital Signs Vital Signs Temp Pulse Resp BP Pulse Ox 08/29/17 16:00 85 112/58 97 08/29/17 15:30 89 11 123/66 98 08/29/17 15:25 96 19 98 08/29/17 15:23 115/66 08/29/17 15:15 97.8 F 93 12 115/66 100 - Laboratory Lab Results: Lab Results 08/29/17 08/29/17 08/29/17 Range/Units 15:33 15:33 15:33 WBC 10.3 (3.5-10.8) 10^3/ul RBC 3.22 L (4.0-5.4) 10^6/ul Hgb 8.9 L (14.0-18.0) g/dl Hct 27 L (42-52) % MCV 83 (80-94) fL MCH 28 (27-31) pg MCHC 33 (31-36) g/dl RDW 16 H (10.5-15) % Plt Count 96 L (150-450) 10^3/ul MPV 9 (7.4-10.4) um3 Neut % (Auto) 66.2 (38-83) % Lymph % (Auto) 18.3 L (25-47) % [place] % (Auto) 8.8 (1-9) % Eos % (Auto) 5.7 (0-6) % Baso % (Auto) 1.0 (0-2) % Absolute Neuts (auto) 6.8 (1.5-7.7) 10^3/ul Absolute Lymphs (auto) 1.9 (1.0-4.8) 10^3/ul Absolute Monos (auto) 0.9 H (0-0.8) 10^3/ul Absolute Eos (auto) 0.6 (0-0.6) 10^3/ul Absolute Basos (auto) 0.1 (0-0.2) 10^3/ul Absolute Nucleated RBC 0 10^3/ul Nucleated RBC % 0 INR (Anticoag Therapy) 1.40 H (0.77-1.02) APTT 34.1 (26.0-36.3) seconds Sodium 137 (133-145) mmol/L Potassium 4.1 (3.5-5.0) mmol/L Chloride 108 (101-111) mmol/L Carbon Dioxide 25 (22-32) mmol/L Anion Gap 4 (2-11) mmol/L BUN 15 (6-24) mg/dL Creatinine 1.01 (0.67-1.17) mg/dL Est GFR ( Amer) 99.0 (>60) Est GFR (Non-Af Amer) 77.0 (>60) BUN/Creatinine Ratio 14.9 (8-20) Glucose 158 H (70-100) mg/dL Calcium 8.1 L (8.6-10.3) mg/dL Total Bilirubin 0.90 (0.2-1.0) mg/dL AST 27 (13-39) U/L ALT 16 (7-52) U/L Alkaline Phosphatase 44 (34-104) U/L Troponin I 0.00 (<0.04) ng/mL Total Protein 5.9 L (6.4-8.9) g/dL Albumin 2.9 L (3.2-5.2) g/dL Globulin 3.0 (2-4) g/dL Albumin/Globulin Ratio 1.0 (1-3) Blood Type Antibody Screen Crossmatch 08/29/17 Range/Units 15:33 WBC (3.5-10.8) 10^3/ul RBC (4.0-5.4) 10^6/ul Hgb (14.0-18.0) g/dl Hct (42-52) % MCV (80-94) fL MCH (27-31) pg MCHC (31-36) g/dl RDW (10.5-15) % Plt Count (150-450) 10^3/ul MPV (7.4-10.4) um3 Neut % (Auto) (38-83) % Lymph % (Auto) (25-47) % [place] % (Auto) (1-9) % Eos % (Auto) (0-6) % Baso % (Auto) (0-2) % Absolute Neuts (auto) (1.5-7.7) 10^3/ul Absolute Lymphs (auto) (1.0-4.8) 10^3/ul Absolute Monos (auto) (0-0.8) 10^3/ul Absolute Eos (auto) (0-0.6) 10^3/ul Absolute Basos (auto) (0-0.2) 10^3/ul Absolute Nucleated RBC 10^3/ul Nucleated RBC % INR (Anticoag Therapy) (0.77-1.02) APTT (26.0-36.3) seconds Sodium (133-145) mmol/L Potassium (3.5-5.0) mmol/L Chloride (101-111) mmol/L Carbon Dioxide (22-32) mmol/L Anion Gap (2-11) mmol/L BUN (6-24) mg/dL Creatinine (0.67-1.17) mg/dL Est GFR ( Amer) (>60) Est GFR (Non-Af Amer) (>60) BUN/Creatinine Ratio (8-20) Glucose (70-100) mg/dL Calcium (8.6-10.3) mg/dL Total Bilirubin (0.2-1.0) mg/dL AST (13-39) U/L ALT (7-52) U/L Alkaline Phosphatase (34-104) U/L Troponin I (<0.04) ng/mL Total Protein (6.4-8.9) g/dL Albumin (3.2-5.2) g/dL Globulin (2-4) g/dL Albumin/Globulin Ratio (1-3) Blood Type A Positive Antibody Screen Negative Crossmatch See Detail Result Diagrams: 08/29/17 15:33 08/29/17 15:33 Lab Statement: Any lab studies that have been ordered have been reviewed, and results considered in the medical decision making process. Abdominal Pain Fem Course/Dx - Course Course Of Treatment: Pt presented with hx of upper gi bleed and hematemesis at home x 1. Initially in the ED, pt was alert, conversive, and VSS. Labs were sent immediately. Pharmacy was called at 16:13. The pharmacist will put a stat on the octreotide and protonix. Blood bank was called. I spoke to Johann. 4 units of PRBCs ordered stat. Pt Is A+. A runner will be sent down with the blood. ROSELIA was paged at 16:20. Dr. Toledo was paged at 16:30. At 16:34 specific A postive blood was started. 2 Units being bolused. BP is 72/54. Pt' s mental status has changed. He is slow to respond. He subsequently had more hematemesis. It was at this time, the decision was made to intubate. Patient vomitted approx 100cc of bright red blood at 16:35. For sedation, Ketamine was used initially. Concern that paralysis would cause pt to aspirate due to lower esophageal sphincter relaxation. At 16:39 300mg of Ketamine infused, BP at 90/ 44. Pt's vocal cords were not allowing for an easy intubation. Pt subsequently received 100mg of succinylcholine. The intubation was done with direct laryngoscopy without any difficulty or complications. Multiple calls were made to find [place] tube to no avail. The decision to withhold a NG or OG tube was made. Pt had his esophageal varices high. The stated that the GI doctor had difficulty inserting the endoscopy during procedures. I am concerned that with any trauma, this might cause further bleeding. When EMS arrived, I explained this to them and asked that they tell Dr. Irizarry when pt arrives at [facility]. EMS arrived. The changed her mind. she wanted to go to [facility]. We called [facility]. Pt continued to have hematemesis. At this point, I decided to place a 16 gauge OG tube. He had approx 1300cc of blood aspirated. I discussed with the that his needs a GI doctor immediately and that we have an accepting MD at [facility] and it is emergent and life saving to send him to [facility] so that a GI doctor can scope him and save his life. He has at this point, receieved 4 units or PRBCs. I have requested that pt received an additional 2 units of PRBCs. 17:33 pt is being moved to [facility] for transfer to [facility]. - Diagnoses Provider Diagnoses: Upper GI bleed, Esophageal varices - Critical Care Time Critical Care Time: 75-104 min Discharge - Discharge Plan Condition: Critical Disposition: ADMITTED TO OTHER HOSPITAL Discharge Disposition Comment: Patient is being transferred to [facility]. Referrals: Toni Barr MD [Primary Care Provider] - The documentation as recorded by the Lb diana Julia accurately reflects the service I personally performed and the decisions made by me, Aniyah Patel MD.
[2017-08-29 17:41] LABS: Hematocrit 32 % (42-52); Hemoglobin 10.5 g/dl (14.0-18.0)
[2017-08-29 17:43] VITALS: BP 104/48
--- NOTE | 2017-08-29 17:45 | RAD ---
Indication: Upper GI bleeding, cough. Single frontal view of the chest performed at 1605 hours was reviewed. Comparison is made with previous exam dated April 29, 2016. No mediastinal shift is noted. Heart is of normal size and configuration. Lung steven appear clear. IMPRESSION: NO ACTIVE CARDIOPULMONARY DISEASE IS NOTED.
--- NOTE | 2017-08-29 23:04 | ED ---
Hiram, Latasha Asher, scribed for Aniyah Patel MD on 08/29/17 at 1744 . Progress - Progress Note Progress Note: At 17:35 Dr. Irizarry was updated. At time of transport unit 5 and 6 of PRBCs are being bolused and units 7 and 8 are being sent with transport. CXR revealed, as per radiologist, NO ACTIVE CARDIOPULMONARY DISEASE IS NOTED. ED Physician has reviewed this report. Course/Dx - Course Course Of Treatment: Pt presented with hx of upper gi bleed and hematemesis at home x 1. Initially in the ED, pt was alert, conversive, and VSS. Labs were sent immediately. Pharmacy was called at 16:13. The pharmacist will put a stat on the octreotide and protonix. Blood bank was called. I spoke to Johann. 4 units of PRBCs ordered stat. Pt Is A+. A runner will be sent down with the blood. GI was paged at 16:20. Dr. Toledo was paged at 16:30. At 16:34 specific A postive blood was started. 2 Units being bolused. BP is 72/54. Pt' s mental status has changed. He is slow to respond. He subsequently had more hematemesis. It was at this time, the decision was made to intubate. Patient vomitted approx 100cc of bright red blood at 16:35. For sedation, Ketamine was used initially. Concern that paralysis would cause pt to aspirate due to lower esophageal sphincter relaxation. At 16:39 300mg of Ketamine infused, BP at 90/ 44. Pt's vocal cords were not allowing for an easy intubation. Pt subsequently received 100mg of succinylcholine. The intubation was done with direct laryngoscopy without any difficulty or complications. Multiple calls were made to find Blakmore tube to no avail. The decision to withhold a NG or OG tube was made. Pt had his esophageal varices high. The stated that the GI doctor had difficulty inserting the endoscopy during procedures. I am concerned that with any trauma, this might cause further bleeding. When EMS arrived, I explained this to them and asked that they tell Dr. Irizarry when pt arrives at [facility]. EMS arrived. The changed her mind. she wanted to go to [facility]. We called [facility]. Pt continued to have hematemesis. At this point, I decided to place a 16 gauge OG tube. He had approx 1300cc of blood aspirated. I discussed with the that his needs a GI doctor immediately and that we have an accepting MD at [facility] and it is emergent and life saving to send him to [facility] so that a GI doctor can scope him and save his life. He has at this point, receieved 4 units or PRBCs. I have requested that pt received an additional 2 units of PRBCs. 17:33 pt is being moved to [facility] for transfer to [facility]. - Diagnoses Provider Diagnoses: Upper GI bleed, Esophageal varices - Critical Care Time Critical Care Time: 75-104 min The documentation as recorded by the Lb diana Julia accurately reflects the service I personally performed and the decisions made by me, Aniyah Patel MD.
--- NOTE | 2017-09-01 17:46 | ED ---
Progress - Progress Note Progress Note: At 17:35 Dr. Irizarry was updated. At time of transport unit 5 and 6 of PRBCs are being bolused and units 7 and 8 are being sent with transport. CXR revealed, as per radiologist, NO ACTIVE CARDIOPULMONARY DISEASE IS NOTED. ED Physician has reviewed this report. UPDATE: pt's blood cx's reveal strep. Discussed w/ kassy Ochoa clerk, who will relay info to [facility] within [facility] protocol Course/Dx - Course Course Of Treatment: Pt presented with hx of upper gi bleed and hematemesis at home x 1. Initially in the ED, pt was alert, conversive, and VSS. Labs were sent immediately. Pharmacy was called at 16:13. The pharmacist will put a stat on the octreotide and protonix. Blood bank was called. I spoke to Johann. 4 units of PRBCs ordered stat. Pt Is A+. A runner will be sent down with the blood. GI was paged at 16:20. Dr. Toledo was paged at 16:30. At 16:34 specific A postive blood was started. 2 Units being bolused. BP is 72/54. Pt' s mental status has changed. He is slow to respond. He subsequently had more hematemesis. It was at this time, the decision was made to intubate. Patient vomitted approx 100cc of bright red blood at 16:35. For sedation, Ketamine was used initially. Concern that paralysis would cause pt to aspirate due to lower esophageal sphincter relaxation. At 16:39 300mg of Ketamine infused, BP at 90/ 44. Pt's vocal cords were not allowing for an easy intubation. Pt subsequently received 100mg of succinylcholine. The intubation was done with direct laryngoscopy without any difficulty or complications. Multiple calls were made to find Blakmore tube to no avail. The decision to withhold a NG or OG tube was made. Pt had his esophageal varices high. The stated that the GI doctor had difficulty inserting the endoscopy during procedures. I am concerned that with any trauma, this might cause further bleeding. When EMS arrived, I explained this to them and asked that they tell Dr. Irizarry when pt arrives at [facility]. EMS arrived. The changed her mind. she wanted to go to [facility]. We called [facility]. Pt continued to have hematemesis. At this point, I decided to place a 16 gauge OG tube. He had approx 1300cc of blood aspirated. I discussed with the that his needs a GI doctor immediately and that we have an accepting MD at [facility] and it is emergent and life saving to send him to [facility] so that a GI doctor can scope him and save his life. He has at this point, receieved 4 units or PRBCs. I have requested that pt received an additional 2 units of PRBCs. 17:33 pt is being moved to [facility] for transfer to [facility]. - Diagnoses Provider Diagnoses: Upper GI bleed, Esophageal varices - Critical Care Time Critical Care Time: 75-104 min
== END | disposition short-term general hospital (02) ==
LOC: ED 15:13
DX: K92.2 Gastrointestinal hemorrhage, unspecified (principal); I85.00 Esophageal varices without bleeding
CPT/HCPCS: 36415; 36430; 71045; 80053; 84484; 85014; 85018; 85025; 85610; 85730; 86078; 86850; 86900; 86901; 86922; 94002; 96374; 96375; 96376; 99285; J0330; J2250; J2354; J2405; P9040

== ENCOUNTER → 2018-06-17 07:03 | Day surgery (SDC) | payer BC, MEDICARE ==
[~2018-06-17 07:03] MED LIST changes: +Buffered Lidocaine 0.9% SYRIN* 5 ML/SYR SYRINGE INTRADERM ONE; +Bupivacaine 0.5% SDV PF* 30ML VIAL ONE; -D5W IVPB SCH; -Etomidate* 2 MG/ML 20 ML VIAL (40 MG) ONE; -KETAMINE HCL* 50 MG/ML 10 ML VIAL ONE; -Midazolam DRIP 100 MG (1 mg/ml)* - ED ONCE IV ONE; +Midazolam* 1 MG/ML 2 ML VIAL (2 MG) ONE; +Midazolam* 1 MG/ML 5 ML VIAL (5 MG) ONE; +Morphine VIAL* 10 MG/ML 1 ML VIAL ONE; -NS 0.9% 1000 ML* 1,000 ML IV ONE; +Naloxone* 0.4 MG/ML 1 ML VIAL IV PRN; -OCTREOTIDE ACETATE IVPB SCH; -Octreotide Acetate* 100 MCG/ML 1 ML VIAL IV ONE; -Octreotide Acetate* 50 MCG/ML ML IV SLOW PU ONE; -Octreotide Acetate* 500 MCG in NS 0.9% 100 ML* 100 ML IVPB SCH; -Ondansetron INJ* 2 MG/ML VIAL IV ONE; +Ondansetron INJ* 2 MG/ML VIAL IV PRN; -Ondansetron INJ* 2 MG/ML VIAL ONE; -Pantoprazole IV* 40 MG IV ONE; -Pantoprazole IV* 80 MG in NS 0.9% 100 ML* 100 ML IVPB SCH; +Propofol* 10 MG/ML 20 ML BTL IV PUSH ONE; -Rocuronium* 10 MG/ML VIAL IV ONE; -Rocuronium* 10 MG/ML VIAL ONE; -Succinylcholine* 20 MG/ML 10 ML VIAL ONE; +ceFAZolin 2 GM PREMIX in ORs 2 GM/50 ML BAG IVPB ONE; +fentaNYL* 50 MCG/ML 2 ML VIAL (100 MCG VIAL) IV PRN; +fentaNYL* 50 MCG/ML 2 ML VIAL (100 MCG VIAL) ONE; +oxyCODONE TAB* 5 MG TAB PO PRN
[2018-06-17 11:01] VITALS: BP 142/89
--- NOTE | 2018-06-17 13:02 | OP ---
Operative Report - Blank - Operative Report Date of Operation: 06/17/18 Note: PATIENT: Flaco Nieto DATE OF : 1960 DATE OF SURGERY: 06/17/2018 SURGEON: Gentry Whitmore MD TROLLEY WORKER: HALEY Ramires, whos assistance was necessary for positioning, retraction, help with instrumentation, and closure. ANESTHESIOLOGIST: Dr. 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 Both operative and non-operative treatment alternatives were reviewed. Further, the nature and risks of surgery were reviewed in careful detail. Our discussions regarding the risks of surgery included, but were not limited to, infection, wound problems, nerve injury, neuroma, RSD, persistent symptoms, recurrence, blood clot, need for further surgery, failure of the surgery, and even the remote chance of catastrophic complication, including loss of limb. DESCRIPTION OF PROCEDURE: The patient was seen in the preoperative holding unit and informed written consent was obtained. The appropriate extremity was marked. The patient was then brought to the operating room and carefully positioned on the operating room table. Anesthesia was induced. All bony prominences were padded with great care. A well-padded thigh tourniquet was placed. A chlorhexidine based pre- scrub was performed followed by a chloraprep prep and drape in standard sterile fashion. A surgical safety pause was then conducted in which we confirmed the appropriate patient, extremity, planned procedure, availability of equipment, indication and administration of prophylactic antibiotics, and DVT prophylaxis in the form of a compression boot on the non-surgical extremity. I began with an Esmarch exsanguination of the limb, and inflated the tourniquet. There were 3 masses. One was at the anterior knee, overlying the patellar tendon. The other 2 were at the lateral foot. The anterior knee mass measured 2 cm in diameter. The lateral foot masses measured 2.5 cm in diameter and 2 cm in diameter. Longitudinal incisions were made over each of the masses. Careful dissection was used to define the gouty tophi. The tophi were then sharply excised with a 15 blade. A Rongeur was then used to remove any residual tophus material. The tophus material was then sent to pathology. The wounds were then copiously irrigated and meticulously closed in layers utilizing 3-0 Monocryl and 3-0 Nylon. A sterile dressing was then applied. The patient was then awakened from anesthesia and transferred to the recovery room in stable condition. There were no complications. All needle and sponge counts were correct at the end of the case. ATTESTATION: I attest I was present and scrubbed and performed the critical portions of the procedure myself. POSTOPERATIVE PLAN: He will remain heel weightbearing. He will follow up in 2 weeks for likely suture removal.
== END | disposition home or self-care (01) ==
LOC: OR 07:03
PROVIDERS: ATTEND Orthopaedic Surgery
DX: M1A.0721 Idiopathic chronic gout, left ankle and foot, with tophus (tophi) (principal); E11.9 Type 2 diabetes mellitus without complications; Z79.4 Long term (current) use of insulin; E03.9 Hypothyroidism, unspecified; K21.9 Gastro-esophageal reflux disease without esophagitis; F41.8 Other specified anxiety disorders; K70.30 Alcoholic cirrhosis of liver without ascites; I85.10 Secondary esophageal varices without bleeding; M19.90 Unspecified osteoarthritis, unspecified site
CPT/HCPCS: 88304; J0690; J2250; J2270; J2704; J3010